=== PATIENT | female | born 1980 | race Caucasian/White ===

== ENCOUNTER 2018-02-12 19:37 | Emergency (ER) | payer BC, OTHER ==
[2018-02-12 19:53] VITALS: BP 115/82; PULSE 90; RESP 15; TEMP 98.2
--- NOTE | 2018-02-12 20:57 | ED ---
Head Injury HPI - General Chief complaint: Head Injury Stated complaint: fall/head injury Time Seen by Provider: 02/12/18 20:34 Source: patient, RN notes reviewed Mode of arrival: ambulatory Limitations: no limitations - History of Present Illness Initial comments: This is a 37-year-old female who presents to the emergency department with chief complaint of fall injury. Patient states that on 02/10/2018 she slipped down 5 wet concrete outdoor stairs. Patient states she hit the left side of her face on the ground. A friend was present at the time and patient reports she was told that she lost consciousness. She states she felt nauseous all day Friday and had multiple episodes of vomiting. She followed up at [facility] on Friday for evaluation. No computed tomography scan was obtained at the time and patient was diagnosed with a concussion. Patient states that since Friday she has had no further episodes of vomiting but continues to feel nauseous. She reports left-sided facial pain, fatigue and dizziness. Denies a severe headache. denies blood thinners use. denies any other injuries or trauma. denies vision changes or weakness. - Related Data Home Medications Medication Instructions Recorded Confirmed Phentermine HCl [Adipex-P] 37.5 mg PO DAILY PRN 02/12/18 02/12/18 Allergies/Adverse reactions: Allergies Allergy/AdvReac Type Severity Reaction Status Date / Time No Known Allergies Allergy Verified 02/12/18 20:34 Review of Systems ROS Statement: Those systems with pertinent positive or pertinent negative responses have been documented in the HPI. ROS Other: All systems not noted in ROS Statement are negative. Past Medical History Past Medical History: No Reported History History of Any Multi-Drug Resistant Organisms: None Reported Additional Past Surgical History / Comment(s): goldman,right leg Past Psychological History: No Psychological Hx Reported Smoking Status: Current every day smoker Past Alcohol Use History: Occasional Past Drug Use History: None Reported General Exam - General Exam Comments Initial Comments: General: Awake and alert, well-developed; in no apparent distress. HEENT: Mild swelling and tenderness to the left forehead. Ecchymosis and tenderness left infraorbital region. Pupils are equal, round and reactive to light. Extraocular movements intact. Oropharynx moist without erythema or exudate. Bilateral TMs pearly without effusion. Neck: Supple. Normal ROM. No tenderness. Cardiovascular: Regular rate and rhythm. No murmurs, rubs or gallops. Chest symmetrical. Respiratory: Lungs clear to auscultation bilaterally. No wheezes, rales or rhonchi. Normal respiratory effort with no use of accessory muscles. Musculoskeletal: Normal ROM, no tenderness, strength 5/5 bilateral upper and lower extremities. Ambulating normally. Skin: [place], warm and dry without rashes or lesions. Neurological: Alert and oriented x3. CN II-XII grossly intact. Speech is fluent and answers are appropriate. No focal neuro deficits. Psychiatric: Normal mood and affect. No overt signs of depression or anxiety noted. Limitations: no limitations Course Vital Signs 02/12/18 19:48 Temperature 98.2 F Pulse Rate 90 Respiratory 15 Rate Blood Pressure 115/82 O2 Sat by Pulse 99 Oximetry Medical Decision Making - Medical Decision Making This is a 37-year-old female who presents to the emergency department with chief complaint of head injury. Patient reports falling 2 days ago. She does state that she lost consciousness, has had vomiting, dizziness and fatigue. She was evaluated yesterday at another hospital and no computed tomography scan was obtained. Patient states she wants further evaluation as her symptoms have not improved. Computed tomography scan of the brain and facial bones was obtained and no abnormalities were demonstrated. Patient is likely suffering from concussion. Recommended rest. Recommended following up with her primary care provider. Patient is in no acute distress and will be discharged home at this time. She is in agreement with plan and voices understanding. All questions were answered. - Lab Data Lab Results 02/12/18 Range/Units 19:54 Urine HCG, Qual Not Detected (Not Detectd) - Radiology Data Radiology results: report reviewed CT facial bones without contrast impression: No evidence of traumatic injury. Normal paranasal sinuses. CT brain without contrast impression: Negative computed tomography scan of the brain. Disposition Clinical Impression: Concussion Disposition: HOME SELF-CARE Condition: Good Instructions: Concussion (ED) Additional Instructions: Please follow up with primary care provider within 1-2 days. Return to emergency department if symptoms should worsen or any concerns arise. Is patient prescribed a controlled substance at d/c from ED?: No Referrals: None,Stated [Primary Care Provider] - 1-2 days Time of Disposition: 21:17
--- NOTE | 2018-02-12 21:04 | CT ---
EXAMINATION TYPE: CT brain wo con DATE OF EXAM: 02/12/2018 COMPARISON: None HISTORY: Left side facial pain after fall x2 days ago. CT DLP: 845.3 mGycm. Automated Exposure Control for Dose Reduction was Utilized. TECHNIQUE: CT scan of the head is performed without contrast. FINDINGS: Ventricles of normal size. There is no mass effect nor midline shift. There is no sign of i ntracranial hemorrhage. The calvarium is intact. IMPRESSION: Negative CT scan of the brain.
--- NOTE | 2018-02-12 21:06 | CT ---
EXAMINATION TYPE: CT facial bones wo con DATE OF EXAM: 02/12/2018 COMPARISON: None HISTORY: Left side facial pain after fall x2 days ago. CT DLP: 522.5 mGycm Automated exposure control for dose reduction was used. TECHNIQUE: CT scan of the sinuses is performed without contrast, axial images are obtained, coronal r eformatted images are also reviewed. FINDINGS: The orbital margins are intact. There is no evidence of blowout fracture. There is no retro -orbital mass. Globes are symmetric. Nasal bone is intact. Zygomatic arches appear normal. The maxill a appears intact. There is fairly normal aeration of the paranasal sinuses. There is bilateral patenc y of the ostiomeatal complex. Temporomandibular joints appear normal. Visualized temporal bones appea r normal. There is normal aeration of the epitympanic recess bilaterally. IMPRESSION: No evidence of traumatic injury. Normal paranasal sinuses.
== END 2018-02-12 21:38 | disposition home or self-care (01) ==
LOC: EC 19:37
DX: S06.0X9A Concussion with loss of consciousness of unspecified duration, initial encounter (principal); S05.12XA Contusion of eyeball and orbital tissues, left eye, initial encounter; F17.200 Nicotine dependence, unspecified, uncomplicated; W10.9XXA Fall (on) (from) unspecified stairs and steps, initial encounter; Y92.009 Unspecified place in unspecified non-institutional (private) residence as the place of occurrence of the external cause
CPT/HCPCS: 70450; 70486; 81025; 99284

== ENCOUNTER 2019-02-23 00:03 | Inpatient (IN) | payer OTHER ==
--- NOTE | 2019-02-23 00:32 | ED ---
Abdominal Pain HPI - General Chief Complaint: Abdominal Pain Stated Complaint: OB consult Time Seen by Provider: 02/23/19 00:12 Source: EMS Mode of arrival: EMS Limitations: no limitations - History of Present Illness Initial Comments: Eli is a 38yo female who is transferred to the ER from neighboring hospital for evaluation of possible PID vs ovarian abscess. Patient presented to the outside hospital with 2 days of pelvic pain. [facility] patient was noted to be tachycardic and febrile. A complete workup was obtained, labs revealed leukocytosis with white count of 22.5. Pelvic ultrasound revealed no acute findings aside from some free fluid in the pelvis. Computed tomography scan of the abdomen revealed a fluid-filled tubular structure in the left pelvis consistent with possible tubo-ovarian abscess with surrounding free fluid. Patient was treated with Rocephin, Flagyl and doxycycline prior to transfer. Patient states that she is sexually active with her , she denies any concern for sexual transmitted infections. She denies being treated for sexual transmitted infections in the past. - Related Data Home Medications Medication Instructions Recorded Confirmed Phentermine HCl [Adipex-P] 37.5 mg PO DAILY PRN 02/12/18 02/12/18 Allergies Allergy/AdvReac Type Severity Reaction Status Date / Time No Known Allergies Allergy Verified 02/23/19 00:09 Review of Systems ROS Statement: Those systems with pertinent positive or pertinent negative responses have been documented in the HPI. ROS Other: All systems not noted in ROS Statement are negative. Past Medical History Past Medical History: No Reported History History of Any Multi-Drug Resistant Organisms: None Reported Additional Past Surgical History / Comment(s): goldman,right leg, Past Psychological History: No Psychological Hx Reported Smoking Status: Current every day smoker Past Alcohol Use History: Occasional Past Drug Use History: None Reported General Exam - General Exam Comments Initial Comments: Physical Exam GENERAL: Appears uncomfortable HENT: Normocephalic, Atraumatic. EYES: PERRL, EOMI PULMONARY: Unlabored respirations CARDIOVASCULAR: Tachycardic,, warm and well perfused extremities ABDOMEN: Tenderness to palpation in pelvis SKIN: Skin is clear with no lesions or rashes and otherwise unremarkable. : Deferred - patient had pelvic exam at transferring hospital NEUROLOGIC: Patient is alert and oriented x3. Moving all extremities spontaneously MUSCULOSKELETAL: Normal extremities with adequate strength and full range of motion. No lower extremity swelling or edema. No calf tenderness. PSYCHIATRIC: Normal psychiatric evaluation. Limitations: no limitations Course Vital Signs 02/23/19 02/23/19 00:04 01:08 Temperature 99.4 F 99.4 F Pulse Rate 111 H 102 H Respiratory 17 20 Rate Blood Pressure 103/67 95/60 O2 Sat by Pulse 96 98 Oximetry Medical Decision Making - Medical Decision Making Patient care was discussed with transferring physician is concerning for possible tubo-ovarian abscess Patient I will hospital, she is afebrile but tachycardic has leukocytosis and the source of infection repeat CBC CMP and blood cultures were obtained patient care was discussed with gynecology on-call Dr. Valdez who recommends repeating the ultrasound with attention to the left ovary and fallopian tube, she recommends treatment with broad spectrum antibiotics ampicillin, gentamicin and clindamycin. These were ordered. Requests admission to medicine for medical management of infection. Patient PCP Dr Markham admits to [facility] - Admission orders placed - Lab Data Result diagrams: 02/23/19 00:59 02/23/19 00:59 Lab Results 02/23/19 02/23/19 Range/Units 00:59 00:59 WBC 20.3 H (3.8-10.6) k/uL RBC 3.88 (3.80-5.40) m/uL Hgb 12.0 (11.4-16.0) gm/dL Hct 36.5 (34.0-46.0) % MCV 94.1 (80.0-100.0) fL MCH 30.9 (25.0-35.0) pg MCHC 32.8 (31.0-37.0) g/dL RDW 13.1 (11.5-15.5) % Plt Count 315 (150-450) k/uL Neutrophils % 91 % Lymphocytes % 4 % Monocytes % 4 % Eosinophils % 1 % Basophils % 1 % Neutrophils # 18.4 H (1.3-7.7) k/uL Lymphocytes # 0.8 L (1.0-4.8) k/uL Monocytes # 0.7 (0-1.0) k/uL Eosinophils # 0.1 (0-0.7) k/uL Basophils # 0.1 (0-0.2) k/uL Sodium 138 (137-145) mmol/L Potassium 3.7 (3.5-5.1) mmol/L Chloride 107 (98-107) mmol/L Carbon Dioxide 22 (22-30) mmol/L Anion Gap 9 mmol/L BUN 10 (7-17) mg/dL Creatinine 0.53 (0.52-1.04) mg/dL Est GFR (CKD-EPI)AfAm >90 (>60 ml/min/1.73 sqM) Est GFR (CKD-EPI)NonAf >90 (>60 ml/min/1.73 sqM) Glucose 104 H (74-99) mg/dL Calcium 8.9 (8.4-10.2) mg/dL Total Bilirubin 0.5 (0.2-1.3) mg/dL AST 15 (14-36) U/L ALT 12 (9-52) U/L Alkaline Phosphatase 77 (38-126) U/L Total Protein 6.7 (6.3-8.2) g/dL Albumin 3.7 (3.5-5.0) g/dL Disposition Clinical Impression: Acute infection of female upper reproductive tract Disposition: ADMITTED IP TO THIS [facility] Condition: Stable Is patient prescribed a controlled substance at d/c from ED?: No
[2019-02-23] MEDS ORDERED: AMPICILLIN 1,000 MG in SODIUM CHLORIDE 0.9% 50 ML IVPB STA (00:33)
[2019-02-23] MEDS ORDERED: CLINDAMYCIN 900 MG in DEXTROSE 5% IN WATER 50 ML IVPB STA ×2 (00:33)
[2019-02-23] MEDS ORDERED: GENTAMICIN 240 MG in SODIUM CHLORIDE 0.9% 100 ML IVPB STA (00:33)
[2019-02-23 01:18] LABS: Basophils # (A) 0.1 k/uL (0-0.2); Basophils % (A) 1 %; Eosinophils # (A) 0.1 k/uL (0-0.7); Eosinophils % (A) 1 %; HCT 36.5 % (34.0-46.0); Lymphocytes # (A) 0.8 k/uL (1.0-4.8); Lymphocytes % (A) 4 %; MCH 30.9 pg (25.0-35.0); MCHC 32.8 g/dL (31.0-37.0); MCV 94.1 fL (80.0-100.0); Mean Platelet Volume 6.2; Monocytes # (A) 0.7 k/uL (0-1.0); Monocytes % (A) 4 %; Neutrophils # (A) 18.4 k/uL (1.3-7.7); Neutrophils % (A) 91 %; Platelet Count 315 k/uL (150-450); RBC 3.88 m/uL (3.80-5.40); RDW 13.1 % (11.5-15.5); WBC 20.3 k/uL (3.8-10.6)
[2019-02-23] MEDS ORDERED: NALOXONE 0.4 MG/ML 1 ML VIAL IV PRN (01:20)
[2019-02-23 01:27] LABS: ALT 12 U/L (9-52); AST 15 U/L (14-36); African American GFR (CKD) >90 (>60 ml/min/1.73 sqM); Albumin 3.7 g/dL (3.5-5.0); Alkaline Phosphatase 77 U/L (38-126); Anion Gap 9 mmol/L; Blood Urea Nitrogen 10 mg/dL (7-17); Calcium 8.9 mg/dL (8.4-10.2); Carbon Dioxide 22 mmol/L (22-30); Chloride 107 mmol/L (98-107); Glucose 104 mg/dL (74-99); Non-African American GFR(CKD) >90 (>60 ml/min/1.73 sqM); Potassium 3.7 mmol/L (3.5-5.1); Sodium 138 mmol/L (137-145); Total Bilirubin 0.5 mg/dL (0.2-1.3); Total Protein 6.7 g/dL (6.3-8.2)
--- NOTE | 2019-02-23 01:29 | US ---
EXAMINATION TYPE: US transvaginal DATE OF EXAM: 02/23/2019 COMPARISON: Previous OB ultrasound 2010 CLINICAL HISTORY: possible TOA. Possible TOA per order. Pelvic pain x couple days. . TECHNIQUE: Transvaginal (TV). Date of LMP: 02/19/2019 EXAM MEASUREMENTS: Uterus: 10.2 x 6.5 x 5.0 cm Endometrial Stripe: 1.84 cm. Without fluid measures: 0.72 cm anteriorly and 0.59 cm posteriorly. Right Ovary: ?Possible right ovary measures: 5.0 x 2.0 x 2.1 cm. Left Ovary: not seen with certainty 1. Uterus: Anteverted. Measures upper limits of normal. Hypoechoic areas seen in cervix. Largest se en measures: 0.9 x 0.5 x 0.4 cm. 2. Endometrium: Fluid-appearing anechoic area seen upper endometrium measurin.5 x 2.1 x 0.3 cm. Appears thickened. 3. Right Ovary: Complex area seen in the right adnexa. Area imaged cannot be viewed in one plane, ap pears slightly tortuous. ?Area measured possible enlarged right ovary. Arterial and venous waveforms seen in the area measured and in complex area adjacent to/connected to probable ovary. Hypoechoic are as in possible right ovary, largest measurin.7 cm in length. 4. Left Ovary: not seen with certainty 5. Bilateral Adnexa: ?Mixed area imaged in right adnexa as mentioned above. Minimal fluid adjacent t o right ovary? 6. Posterior cul-de-sac: Minimal amount of fluid seen IMPRESSION: There are small right ovarian cysts. Tiny amount of endometrial fluid. No solid adnexal m ass. Small amount of free fluid in the cul-de-sac. Elongated fluid area in the right adnexa could rel ate to hydrosalpinx. This measures 14 mm in diameter. No evidence of torsion of the right ovary. Left ovary not seen.
[2019-02-23] MEDS: SODIUM CHLORIDE 0.9% 1,000 ML IV SCH ×3 (01:32→19:28)
[2019-02-23] MEDS: ONDANSETRON 4 MG/2 ML VIAL IVP PRN ×2 (01:34→10:45)
[2019-02-23] MEDS: MORPHINE SULFATE 4 MG/ML SYRINGE IV PRN ×2 (01:35→08:20)
--- NOTE | 2019-02-23 10:20 | P.OBCN ---
History of Present Illness Consult date: 02/23/19 Requesting physician: Roney Markham Reason for consult: other Chief complaint: Abdominal and pelvic pain History of present illness: This is a 38-year-old 10 para 10 woman with a 2 day history of worsening abdominal and right pelvic pain. She presented to [facility] room where she was found to be tachycardic, have an elevated white blood cell count, and have possible hydrosalpinx versus tubo-ovarian abscess on computed tomography scan. She was transferred to our facility for further follow-up. She reports a history of intermittent episodes of abdominal and right lower quadrant pain, approximately 4 times in the last 1-2 years. She states she has been seen in the emergency room for this condition approximately 1 year ago and at that time was also told that she had an infection but nothing was done. 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 She reports her periods are regular and her LMP was less than 1 week ago. This was a normal menstrual cycle for her without any significant change in her usual bleeding pattern. She denies fevers or chills, nausea, vomiting, constipation, diarrhea, dysuria or hematuria. She denies vaginal discharge. She is in a monogamous relationship with her . Ultrasound shows mildly enlarged uterus 10.2 x 6.5 x 5.0 cm with a thickened endometrial stripe of 1.8 cm. Complex area seen in the right adnexa not definitively the ovary, tortuous in appearance. Area measures 5.0 x 2.0 x 2.1 c m. This correlates with computed tomography scan. The appendix was normal on computed tomography scan. There is no free fluid or free air. test was negative at [facility] by verbal report. She reports a heart condition for which she occasionally takes nitroglycerin. She cannot remember the last time she needed to use this medication nor her specific diagnosis. Review of Systems Constitutional: Reports fatigue, Denies chills, Denies fever Cardiovascular: Denies chest pain, Denies high blood pressure, Denies irregular heart beat, Denies lightheadedness, Denies shortness of breath Respiratory: Denies cough, Denies pain on inspiration Gastrointestinal: Reports abdominal pain, Reports loss of appetite, Reports nausea, Denies BRBPR, Denies change in bowel habits, Denies constipation, Denies diarrhea, Denies heartburn, Denies vomiting Genitourinary: Reports pelvic pain, Denies abnormal vaginal bleeding, Denies dysuria, Denies flank pain, Denies genital sores, Denies hematuria, Denies menorrhagia, Denies urgency, Denies vaginal discharge, Denies vaginal itching, Denies vaginal odor Menstruation: Reports period normal Musculoskeletal: Reports low back pain Integumentary: Denies rash Neurological: Denies headaches Hematologic/Lymphatic: Denies easy bleeding, Denies easy bruising Past Medical History Past Medical History: No Reported History Additional Past Medical History / Comment(s): 10. Unknown cardiac condition for which she has a prescription for nitroglycerin History of Any Multi-Drug Resistant Organisms: None Reported Past Surgical History: No Surgical Hx Reported Additional Past Surgical History / Comment(s): goldman,right leg, Past Psychological History: No Psychological Hx Reported Smoking Status: Current every day smoker Past Alcohol Use History: Occasional Past Drug Use History: None Reported Medications and Allergies Home Medications Medication Instructions Recorded Confirmed Type Ibuprofen 600 mg PO Q6H PRN 02/23/19 02/23/19 History Allergies Allergy/AdvReac Type Severity Reaction Status Date / Time No Known Allergies Allergy Verified 02/23/19 07:33 Exam Vital Signs Temp Pulse Pulse Resp BP BP Pulse Ox 02/23/19 05:00 98.0 F 108 H 20 101/59 96 02/23/19 03:00 98.3 F 113 H 20 114/68 97 02/23/19 01:08 99.4 F 102 H 20 95/60 98 02/23/19 00:04 99.4 F 111 H 17 103/67 96 Intake and Output 02/22/19 02/23/19 02/23/19 22:59 06:59 14:59 Intake Total 300 Balance 300 Intake: Oral 300 Other: # Voids 1 Weight 77.111 kg This is a pleasant female with multiple tattoos and piercings. She appears to be in no acute distress. HEENT exam is unremarkable with no palpable lymphadenopathy. Her breathing is on labored. Her heart is a regular rate and rhythm. On abdominal exam the abdomen is soft and not distended. She has mild right lower and right mid abdominal pain without rebound or guarding. Pelvic examination recently performed in the emergency room therefore is deferred at this time. She did have cervical motion tenderness per verbal report. The extremities are free of any swelling or redness. Her mood and affect are normal. Results Result Diagrams: 02/23/19 00:59 02/23/19 00:59 Abnormal Lab Results - Last 24 Hours (Table) 02/23/19 02/23/19 Range/Units 00:59 00:59 WBC 20.3 H (3.8-10.6) k/uL Neutrophils # 18.4 H (1.3-7.7) k/uL Lymphocytes # 0.8 L (1.0-4.8) k/uL Glucose 104 H (74-99) mg/dL CT scan - abdomen: report reviewed CT scan - pelvis: report reviewed US - abdomen: report reviewed Assessment and Plan (1) TOA (tubo-ovarian abscess) Current Visit: Yes Status: Acute Code(s): N70.93 - SALPINGITIS AND OOPHORITIS, UNSPECIFIED SNOMED Code(s): 19177362 (2) PID (pelvic inflammatory disease) Current Visit: Yes Status: Acute Code(s): N73.9 - FEMALE PELVIC INFLAMMATORY DISEASE, UNSPECIFIED SNOMED Code(s): 241878902 (3) Acute infection of female upper reproductive tract Current Visit: Yes Status: Acute Code(s): N73.0 - ACUTE PARAMETRITIS AND PELVIC CELLULITIS SNOMED Code(s): 731173256 (4) Smoker Current Visit: Yes Status: Acute Code(s): F17.200 - NICOTINE DEPENDENCE, UNSPECIFIED, UNCOMPLICATED SNOMED Code(s): 54588410 Plan: This is a 38 year old 10 para 10 woman with probable PID and tubo- ovarian abscess. She has some fluid in the endometrium as well as a complex tubular structure measuring 5 x 2 x 2 cm on pelvic ultrasound. Blood, urine and cervical cultures are all pending. She is currently afebrile. She has received single dose each of ampicillin, gentamicin and clindamycin for presumed PID, TOA. I would recommend continuing with this regimen until normalization of her white blood cell count. An alternative antibiotic course is cefotetan 2 g IV every 12 hours with doxycycline 100 mg every 12 hours. It is possible this is a chronic process as she reports the previous evaluation for these same symptoms and findings in the last year. She may benefit from further outpatient evaluation with possible removal of hydrosalpinx when active infection has resolved. I counseled the patient that it is not uncommon for cervical cultures to be negative as the initial cervicitis has resolved but the infection remains in the uterus and fallopian tube. All questions were answered and I reviewed my treatment recommendations. I encouraged her to discuss further with her medical physicians her cardiac condition. Copies of culture results from [facility] will be reviewed as they become avai johnnie.
[2019-02-23] MEDS: DOXYCYCLINE 100 MG in SODIUM CHLORIDE 0.9% 100 ML IVPB SCH ×2 (10:44→19:29)
[2019-02-23] MEDS: AMPICILLIN-SULBACTAM 3 GM in SODIUM CHLORIDE 0.9% 100 ML IVPB SCH ×2 (12:25→17:09)
[2019-02-23] MEDS: ACETAMINOPHEN TAB 325 MG TAB PO PRN ×2 (12:27→19:28)
[2019-02-23] MEDS: HEPARIN SODIUM,PORCINE 5,000 UNIT/ML 1 ML VIAL SQ SCH ×2 (15:36→21:19)
[2019-02-23] MEDS: IBUPROFEN 400 MG TAB PO PRN (20:39)
--- NOTE | 2019-02-24 08:09 | P.PN ---
Subjective Progress Note Date: 02/24/19 Principal diagnosis: Pelvic inflammatory disease, tubo-ovarian abscess She reports ongoing generalized abdominal pain throughout the night. No nausea or vomiting. She did have a fever of 101.5. Denies vaginal bleeding or discharge. Objective - Vital Signs Vital signs: Vital Signs Temp 101.5 F H 02/23/19 20:00 Pulse 110 H 02/23/19 20:00 Resp 16 02/23/19 20:00 BP 103/55 02/23/19 20:00 Pulse Ox 96 02/23/19 20:00 Intake & Output 02/23/19 02/24/19 02/24/19 18:59 06:59 18:59 Other: # Voids 3 1 - Constitutional General appearance: Present: cooperative, no acute distress - Respiratory Respiratory: negative: CTA - Gastrointestinal General gastrointestinal: Present: normal bowel sounds, soft, tenderness. Absent: distended Localized gastrointestinal: tender: diffuse - Neurologic Neurologic: Absent: focal deficits - Psychiatric Psychiatric: Present: A&O x's 3, appropriate affect - Labs CBC & Chem 7: 02/23/19 00:59 02/23/19 00:59 Labs: Microbiology - Last 24 Hours (Table) 02/23/19 01:36 Blood Culture - Preliminary Blood No Growth after 24 hours Assessment and Plan (1) TOA (tubo-ovarian abscess) Current Visit: Yes Status: Acute Code(s): N70.93 - SALPINGITIS AND OOPHORITIS, UNSPECIFIED SNOMED Code(s): 47925789 (2) PID (pelvic inflammatory disease) Current Visit: Yes Status: Acute Code(s): N73.9 - FEMALE PELVIC INFLAMMATORY DISEASE, UNSPECIFIED SNOMED Code(s): 339247592 (3) Acute infection of female upper reproductive tract Current Visit: Yes Status: Acute Code(s): N73.0 - ACUTE PARAMETRITIS AND PELVIC CELLULITIS SNOMED Code(s): 185545074 (4) Smoker Current Visit: Yes Status: Acute Code(s): F17.200 - NICOTINE DEPENDENCE, UNSPECIFIED, UNCOMPLICATED SNOMED Code(s): 17833456 Plan: 38-year-old G2 P 10 with PID, hydrosalpinx possible tubo-ovarian abscess on the right. She is on ampicillin sulbactam and doxycycline intravenously day 2. She did have a fever of 101.5 throughout the night. Her pain has not improved. She does not have a surgical abdomen. Blood cultures are negative. Still awaiting results from urine and cervical cultures from outlying hospital. Recommend continuation of IV antibiotics until afebrile 24 hours and decreasing white blood cell counts. Recommendations reviewed with the patient and all questions are answered. Time with Patient: Less than 30
[2019-02-24 08:26] LABS: Basophils # (A) 0.1 k/uL (0-0.2); Basophils % (A) 1 %; Eosinophils # (A) 0.1 k/uL (0-0.7); Eosinophils % (A) 1 %; HCT 33.2 % (34.0-46.0); HGB 10.7 gm/dL (11.4-16.0); Lymphocytes # (A) 0.7 k/uL (1.0-4.8); Lymphocytes % (A) 6 %; MCH 31.4 pg (25.0-35.0); MCHC 32.4 g/dL (31.0-37.0); Mean Platelet Volume 6.7; Monocytes # (A) 0.6 k/uL (0-1.0); Monocytes % (A) 5 %; Neutrophils # (A) 10.5 k/uL (1.3-7.7); Neutrophils % (A) 87 %; Platelet Count 265 k/uL (150-450); RBC 3.42 m/uL (3.80-5.40); RDW 13.1 % (11.5-15.5)
[2019-02-24] MEDS: AMPICILLIN-SULBACTAM 3 GM in SODIUM CHLORIDE 0.9% 100 ML IVPB SCH ×2 (08:42→12:21)
[2019-02-24] MEDS: HEPARIN SODIUM,PORCINE 5,000 UNIT/ML 1 ML VIAL SQ SCH ×2 (08:43→15:11)
[2019-02-24] MEDS: DOXYCYCLINE 100 MG in SODIUM CHLORIDE 0.9% 100 ML IVPB SCH ×2 (08:43→21:09)
[2019-02-24] MEDS: SODIUM CHLORIDE 0.9% 1,000 ML IV SCH ×2 (08:44→17:08)
[2019-02-24] MEDS: ACETAMINOPHEN TAB 325 MG TAB PO PRN ×2 (08:49→17:08)
[2019-02-24 09:48] LABS: African American GFR (CKD) >90 (>60 ml/min/1.73 sqM); Anion Gap 6 mmol/L; Blood Urea Nitrogen 8 mg/dL (7-17); Calcium 8.7 mg/dL (8.4-10.2); Carbon Dioxide 26 mmol/L (22-30); Chloride 107 mmol/L (98-107); Glucose 76 mg/dL (74-99); Non-African American GFR(CKD) >90 (>60 ml/min/1.73 sqM); Potassium 3.8 mmol/L (3.5-5.1); Sodium 139 mmol/L (137-145)
--- NOTE | 2019-02-24 09:49 | P.HPIM ---
History of Present Illness H&P Date: 02/23/19 Chief Complaint: Abdominal pain Patient is a 38-year-old female without significant past history came to ER with the complaints of abdominal pain mainly in the lower abdomen and right upper quadrant for the past 2 days. Patient initially presented to [facility] and had CT of the abdomen pelvis which showed hydrosalpinx versus tubo- ovarian abscess. Patient had elevated white count at 22.5 and tachycardic. Due to sepsis and possible abscess patient was eventually transferred to [facility] for further evaluation. Pelvic ultrasound showed no acute findings. Free fluid was noted in the pelvis. Patient was given a dose of Rocephin, Flagyl and doxycycline prior to transfer. Patient was given ampicillin and clindamycin while in the ER. Patient otherwise denied any multiple sexual partners. Patient does have fever and chills otherwise. Transvaginal ultrasound was ordered. Transvaginal ultrasound showed complex area seen in the right adnexa. SIMIN measured cannot be viewed in one plan appears slightly tortuous. Area measured possible enlarged right ovary. Review of Systems Constitutional: Fever and chills.. No generalized weakness or weight loss. Abdomen: Patient denied nausea vomiting and diarrhea and . Patient does have lower abdominal pain. Cardiovascular: Patient denies any chest pain or short of breath no palpitations. Respiratory: patient denied any cough is from production. No shortness of breath Neurologic: Patient denied any numbness or tingling headache. Musculoskeletal: Patient denies any complaints of joint swelling or deformity. Skin: Negative Psychiatric: Negative Endocrine: No heat or cold intolerance. No recent weight gain. Genitourinary: No dysuria or hematuria. All other 14 point ROS negative except the above Past Medical History Past Medical History: No Reported History History of Any Multi-Drug Resistant Organisms: None Reported Additional Past Surgical History / Comment(s): goldman,right leg, Past Psychological History: No Psychological Hx Reported Smoking Status: Current every day smoker Past Alcohol Use History: Occasional Past Drug Use History: None Reported Medications and Allergies Home Medications Medication Instructions Recorded Confirmed Type Ibuprofen 600 mg PO Q6H PRN 02/23/19 02/23/19 History Allergies Allergy/AdvReac Type Severity Reaction Status Date / Time No Known Allergies Allergy Verified 02/23/19 07:33 Physical Exam Vitals: Vital Signs Temp Pulse Pulse Resp BP BP Pulse Ox 02/23/19 05:00 98.0 F 108 H 20 101/59 96 02/23/19 03:00 98.3 F 113 H 20 114/68 97 02/23/19 01:08 99.4 F 102 H 20 95/60 98 02/23/19 00:04 99.4 F 111 H 17 103/67 96 Intake and Output 02/22/19 02/23/19 02/23/19 22:59 06:59 14:59 Intake Total 300 Balance 300 Intake: Oral 300 Other: # Voids 1 Weight 77.111 kg PHYSICAL EXAMINATION: Patient is lying in the bed comfortably, no acute distress, awake alert and oriented.. HEENT: Normocephalic. Neck is supple. Pupils reactive. Nostrils clear. Oral cavity is moist. Ears reveal no drainage. Neck reveals no JVD, carotid bruits, or thyromegaly. CHEST EXAMINATION: Trachea is central. Symmetrical expansion. Lung smith clear to auscultation and percussion. CARDIAC: Normal S1, S2 with no gallops. No murmurs ABDOMEN: Soft. Right lower quadrant abdominal tenderness. No guarding no rigidity. Bowel sounds normal. No organomegaly. No abdominal bruits. Extremities: reveal no edema. No clubbing or cyanosis Neurologically awake, alert, oriented x3 with well-coordinated movements. No focal deficits noted Skin: No rash or skin lesions. Psychiatric: Coperative. Nonsuicidal Musculoskeletal: No joint swelling or deformity. Normal range of motion. Results CBC & Chem 7: 02/24/19 07:19 02/23/19 00:59 Labs: Abnormal Lab Results - Last 24 Hours (Table) 02/23/19 02/23/19 Range/Units 00:59 00:59 WBC 20.3 H (3.8-10.6) k/uL Neutrophils # 18.4 H (1.3-7.7) k/uL Lymphocytes # 0.8 L (1.0-4.8) k/uL Glucose 104 H (74-99) mg/dL Thrombosis Risk Factor Assmnt - DVT/VTE Prophylaxis DVT/VTE Prophylaxis: Pharmacologic Prophylaxis ordered - Choose All That Apply Any of the Below Risk Factors Present?: Yes Each Factor Represents 1 point: Obesity (BMI >25) Thrombosis Risk Factor Assessment Total Risk Factor Score: 1 Thrombosis Risk Factor Assessment Level: Low Risk Assessment and Plan Assessment: Tubal ovarian abscess versus hydrosalpinx. Sepsis secondary to above Pelvic inflammatory disease Significant Leukocytosis DVT prophylaxis Ongoing nicotine addiction Plan: Patient will be continued on broad-spectrum and buttocks and cough Unasyn and doxycycline IV. Continue the pain management and follow up cervical swab and cu lture reports from [facility]. CLIMATOLOGY TEACHER was consulted and further recommendations based on the clinical course. Follow-up CBC and repeat tomorrow. Discussed with the patient and family at bedside. Time with Patient: Greater than 30
--- NOTE | 2019-02-24 12:25 | P.PN ---
Subjective Progress Note Date: 02/24/19 Principal diagnosis: Sepsis secondary to tubo-ovarian abscess Patient is a 38-year-old female without significant past history came to ER with the complaints of abdominal pain mainly in the lower abdomen and right upper quadrant for the past 2 days. Patient initially presented to [facility] and had CT of the abdomen pelvis which showed hydrosalpinx versus tubo-ovarian abscess. Patient had elevated white count at 22.5 and tachycardic. Due to sepsis and possible abscess patient was eventually transferred to [facility] for further evaluation. Pelvic ultrasound showed no acute findings. Free fluid was noted in the pelvis. Patient was given a dose of Rocephin, Flagyl and doxycycline prior to transfer. Patient was given ampicillin and clindamycin while in the ER. Patient otherwise denied any multiple sexual partners. Patient does have fever and chills otherwise. Transvaginal ultrasound was ordered. Transvaginal ultrasound showed complex area seen in the right adnexa. SIMIN measured cannot be viewed in one plan appears slightly tortuous. Area measured possible enlarged right ovary. 02/24/2019 Patient is still complaining of lower abdominal pain slightly moved up today as per patient.. Currently being continued on Unasyn and doxycycline. Cervical swab for chlamydia, GC and Trichomonas was negative done at [facility]. Urine culture showed lactobacillus and coagulase-negative staph aureus. COMPRESSION MOLDING MACHINE SETTER service is following. No intervention recommended at this time. Leukocytosis is improving with white count 12 today. Patient was febrile last night. We'll repeat blood cultures if the patient becomes febrile again. No complaints of chest pain or shortness of breath. Active Medications Acetaminophen (Tylenol Tab) 650 mg PO Q6HR PRN PRN Reason: Mild Pain or Fever > 100.5 Last Admin: 02/24/19 08:49 Dose: 650 mg Documented by: Heparin Sodium (Porcine) (Heparin) 5,000 unit SQ Q8HR LILIANA Last Admin: 02/24/19 08:43 Dose: Not Given Documented by: Sodium Chloride (Saline 0.9%) 1,000 mls @ 100 mls/hr IV .Q10H LILIANA Last Admin: 02/24/19 08:44 Dose: 100 mls/hr Documented by: Ampicillin Sodium/Sulbactam (Sodium 3 gm/ Sodium Chloride) 100 mls @ 200 mls/hr IVPB Q6HR LILIANA Last Admin: 02/24/19 08:42 Dose: Not Given Documented by: Doxycycline Hyclate 100 mg/ (Sodium Chloride) 100 mls @ 100 mls/hr IVPB Q12HR LILIANA Last Admin: 02/24/19 08:43 Dose: 100 mls/hr Documented by: Ibuprofen (Motrin) 400 mg PO Q6HR PRN PRN Reason: Mild Pain or Fever > 100.5 Last Admin: 02/23/19 20:39 Dose: 400 mg Documented by: Morphine Sulfate (Morphine Sulfate (Inj)) 4 mg IV Q4HR PRN PRN Reason: Severe Pain Last Admin: 02/23/19 08:20 Dose: 4 mg Documented by: Naloxone HCl (Narcan) 0.2 mg IV Q2M PRN PRN Reason: Opioid Reversal Ondansetron HCl (Zofran) 4 mg IVP Q8HR PRN PRN Reason: Nausea And Vomiting Last Admin: 02/23/19 10:45 Dose: 4 mg Documented by: Objective - Vital Signs Vital signs: Vital Signs Temp 101.5 F H 02/23/19 20:00 Pulse 110 H 02/23/19 20:00 Resp 16 02/24/19 08:00 BP 103/55 02/23/19 20:00 Pulse Ox 96 02/23/19 20:00 Intake & Output 02/23/19 02/24/19 02/24/19 18:59 06:59 18:59 Other: Voiding Method Toilet # Voids 3 1 - Exam PHYSICAL EXAMINATION: Patient is lying in the bed comfortably, no acute distress, awake alert and oriented.. HEENT: Normocephalic. Neck is supple. Pupils reactive. Nostrils clear. Oral cavity is moist. Ears reveal no drainage. Neck reveals no JVD, carotid bruits, or thyromegaly. CHEST EXAMINATION: Trachea is central. Symmetrical expansion. Lung smith clear to auscultation and percussion. CARDIAC: Normal S1, S2 with no gallops. No murmurs ABDOMEN: Soft. Lower abdominal tenderness. No guarding no rigidity. Bowel sounds normal. No organomegaly. No abdominal bruits. Extremities: reveal no edema. No clubbing or cyanosis Neurologically awake, alert, oriented x3 with well-coordinated movements. No focal deficits noted Skin: No rash or skin lesions. Psychiatric: Coperative. Nonsuicidal Musculoskeletal: No joint swelling or deformity. Normal range of motion. - Labs CBC & Chem 7: 02/24/19 07:19 02/24/19 07:15 Labs: Abnormal Lab Results - Last 24 Hours (Table) 02/24/19 Range/Units 07:19 WBC 12.0 H (3.8-10.6) k/uL RBC 3.42 L (3.80-5.40) m/uL Hgb 10.7 L (11.4-16.0) gm/dL Hct 33.2 L (34.0-46.0) % Neutrophils # 10.5 H (1.3-7.7) k/uL Lymphocytes # 0.7 L (1.0-4.8) k/uL Microbiology - Last 24 Hours (Table) 02/23/19 01:36 Blood Culture - Preliminary Blood No Growth after 24 hours Assessment and Plan Assessment: Acute Tubal ovarian abscess. With elevated WBC and fever and lower abdominal tenderness. Sepsis secondary to above Pelvic inflammatory disease Significant Leukocytosis DVT prophylaxis Ongoing nicotine addiction Plan: Patient will be continued on broad-spectrum antibiotics in the form of Unasyn and doxycycline IV. Continue the pain management and follow up cervical swab and culture reports from [facility] were negative. COMPRESSION MOLDING MACHINE SETTER is following and further recommendations based on the clinical course. Follow-up CBC and repeat tomorrow. Discussed with the patient and family at bedside. Time with Patient: Greater than 30
[2019-02-24] MEDS: MORPHINE SULFATE 4 MG/ML SYRINGE IV PRN (13:27)
[2019-02-24] MEDS ORDERED: SODIUM CHLORIDE 0.9% 500 ML 500 ML IV ONE (19:31)
[2019-02-24] MEDS: DOCUSATE 100 MG CAP PO SCH (21:09)
[2019-02-25] MEDS: MORPHINE SULFATE 4 MG/ML SYRINGE IV PRN ×2 (00:14→05:08)
[2019-02-25] MEDS: HEPARIN SODIUM,PORCINE 5,000 UNIT/ML 1 ML VIAL SQ SCH ×2 (00:19→08:35)
[2019-02-25] MEDS: SODIUM CHLORIDE 0.9% 1,000 ML IV SCH (04:14)
[2019-02-25 05:04] VITALS: BP 105/68; PULSE 101; RESP 18; TEMP 99.2
[2019-02-25] MEDS: ACETAMINOPHEN TAB 325 MG TAB PO PRN (05:11)
--- NOTE | 2019-02-25 08:08 | P.PN ---
Subjective Progress Note Date: 02/25/19 Principal diagnosis: Pelvic inflammatory disease, tubo-ovarian abscess Eli reports she is feeling significantly better this morning. She is requesting discharge home. She did however receive 4 mg of IV morphine for pain control. She reports ongoing pain when the lower abdomen is pressed onto but otherwise when she is sitting quietly in bed or up to the bathroom it is not painful. She denies nausea or vomiting and is tolerating a general diet. She reports a good appetite. She denies vaginal bleeding or discharge. T-max was 100.4 at approximately 1400 on 02/24/2019. Blood cultures negative 48 hours. Verbal report of cervical and urine cultures from [facility] are negative. Objective - Vital Signs Vital signs: Vital Signs Temp 99.2 F 02/25/19 05:00 Pulse 101 H 02/25/19 05:00 Resp 18 02/25/19 05:00 BP 105/68 02/25/19 05:00 Pulse Ox 97 02/25/19 05:00 Intake & Output 02/24/19 02/25/19 02/25/19 18:59 06:59 18:59 Intake Total 1080 Balance 1080 Intake: Oral 1080 Other: Voiding Method Toilet Toilet # Voids 3 3 - Constitutional General appearance: Present: average body habitus, cooperative, no acute distress - Gastrointestinal General gastrointestinal: Present: soft, tenderness. Absent: distended Localized gastrointestinal: tender: RLQ (No rebound or guarding) - Genitourinary Genitourinary Comment(s): No active vaginal bleeding or discharge. - Neurologic Neurologic: Absent: focal deficits - Psychiatric Psychiatric: Present: appropriate affect - Labs CBC & Chem 7: 02/24/19 07:19 02/24/19 07:15 Labs: Abnormal Lab Results - Last 24 Hours (Table) 02/24/19 Range/Units 07:19 WBC 12.0 H (3.8-10.6) k/uL RBC 3.42 L (3.80-5.40) m/uL Hgb 10.7 L (11.4-16.0) gm/dL Hct 33.2 L (34.0-46.0) % Neutrophils # 10.5 H (1.3-7.7) k/uL Lymphocytes # 0.7 L (1.0-4.8) k/uL Microbiology - Last 24 Hours (Table) 02/23/19 01:36 Blood Culture - Preliminary Blood No Growth after 48 hours Assessment and Plan (1) TOA (tubo-ovarian abscess) Current Visit: Yes Status: Acute Code(s): N70.93 - SALPINGITIS AND OOPHORITIS, UNSPECIFIED SNOMED Code(s): 64416683 (2) PID (pelvic inflammatory disease) Current Visit: Yes Status: Acute Code(s): N73.9 - FEMALE PELVIC INFLAMMATORY DISEASE, UNSPECIFIED SNOMED Code(s): 899870249 (3) Acute infection of female upper reproductive tract Current Visit: Yes Status: Acute Code(s): N73.0 - ACUTE PARAMETRITIS AND PELVIC CELLULITIS SNOMED Code(s): 442542779 (4) Smoker Current Visit: Yes Status: Acute Code(s): F17.200 - NICOTINE DEPENDENCE, UNSPECIFIED, UNCOMPLICATED SNOMED Code(s): 57945496 Plan: 38-year-old G2 P 10 with PID, hydrosalpinx possible tubo-ovarian abscess on the right. She is on ampicillin sulbactam and doxycycline intravenously day 3. T- max 100.4 1400 on 02/24/2019. Cultures negative. White blood cell count has significantly improved, labs are pending for this morning. Should her white blood cell count continue to decrease she is likely now a candidate for ongoing outpatient PID treatment. I would recommend doxycycline 100 mg twice a day 14 days. I reviewed with her the importance of the completing the entire course of antibiotics. She may follow up with me in 1 week post discharge.
[2019-02-25] MEDS: DOXYCYCLINE 100 MG in SODIUM CHLORIDE 0.9% 100 ML IVPB SCH (09:26)
[2019-02-25] MEDS: DOCUSATE 100 MG CAP PO SCH (09:26)
[2019-02-25] MEDS: IBUPROFEN 400 MG TAB PO PRN (09:31)
[2019-02-25 10:09] LABS: African American GFR (CKD) >90 (>60 ml/min/1.73 sqM); Anion Gap 9 mmol/L; Blood Urea Nitrogen 6 mg/dL (7-17); Calcium 8.7 mg/dL (8.4-10.2); Carbon Dioxide 24 mmol/L (22-30); Chloride 106 mmol/L (98-107); Glucose 95 mg/dL (74-99); Non-African American GFR(CKD) >90 (>60 ml/min/1.73 sqM); Potassium 3.6 mmol/L (3.5-5.1); Sodium 139 mmol/L (137-145)
[2019-02-25 10:26] LABS: Basophils # (A) 0.1 k/uL (0-0.2); Basophils % (A) 1 %; Eosinophils # (A) 0.1 k/uL (0-0.7); Eosinophils % (A) 1 %; HCT 32.4 % (34.0-46.0); HGB 10.6 gm/dL (11.4-16.0); Lymphocytes # (A) 1.2 k/uL (1.0-4.8); Lymphocytes % (A) 11 %; MCH 31.7 pg (25.0-35.0); MCHC 32.6 g/dL (31.0-37.0); MCV 97.4 fL (80.0-100.0); Mean Platelet Volume 6.6; Monocytes # (A) 0.7 k/uL (0-1.0); Monocytes % (A) 6 %; Neutrophils # (A) 8.5 k/uL (1.3-7.7); Neutrophils % (A) 79 %; Platelet Count 326 k/uL (150-450); RBC 3.33 m/uL (3.80-5.40); WBC 10.8 k/uL (3.8-10.6)
--- NOTE | 2019-03-08 00:47 | P.DS ---
Providers Date of admission: 02/23/19 01:20 Expected date of discharge: 02/25/19 Attending physician: Sarah Whaley Consults: 02/23/19 01:21 Consult Physician Urgent Consulting Provider: Jodi Valdez Consult Reason/Comments: possible TOA Do you want consulting provider notified?: Already Contacted Primary care physician: Shahrzad Sim [facility] Course: Discharge diagnosis Acute Tubo-ovarian abscess. With elevated WBC and fever and lower abdominal tenderness. Sepsis secondary to above Pelvic inflammatory disease Significant Leukocytosis DVT prophylaxis Ongoing nicotine addiction Hospital course Patient is a 38-year-old female without significant past history came to ER with the complaints of abdominal pain mainly in the lower abdomen and right upper quadrant for the past 2 days. Patient initially presented to [facility] and had CT of the abdomen pelvis which showed hydrosalpinx versus tubo- ovarian abscess. Patient had elevated white count at 22.5 and tachycardic. Due to sepsis and possible abscess patient was eventually transferred to [facility] for further evaluation. Pelvic ultrasound showed no acute findings. Free fluid was noted in the pelvis. Patient was given a dose of Rocephin, Flagyl and doxycycline prior to transfer. Patient was given ampicillin and clindamycin while in the ER. Patient otherwise denied any multiple sexual partners. Patient does have fever and chills otherwise. Transvaginal ultrasound was ordered. Transvaginal ultrasound showed complex area seen in the right adnexa. SIMIN measured cannot be viewed in one plan appears slightly tortuous. Area measured possible enlarged right ovary. 02/24/2019 Patient is still complaining of lower abdominal pain slightly moved up today as per patient.. Currently being continued on Unasyn and doxycycline. Cervical swab for chlamydia, GC and Trichomonas was negative done at [facility]. Urine culture showed lactobacillus and coagulase-negative staph aureus. MINES INSPECTOR service is following. No intervention recommended at this time. Leukocytosis is improving with white count 12 today. Patient was febrile last night. We'll repeat blood cultures if the patient becomes febrile again. No complaints of chest pain or shortness of breath. 02/25/2019 Patient says that her abdominal pain is better. Otherwise patient did have slight fever with T-max 100.4 yesterday evening. Tolerating oral diet. Patient was admitted to stay until feeling completely resolves. Leukocytosis improved. Patient was to be discharged home today. MINES INSPECTOR has seen the patient and cleared patient for discharge with oral doxycycline for 2 weeks. Patient is being discharged home today. And follow with MINES INSPECTOR in the clinic. PHYSICAL EXAMINATION: Patient is lying in the bed comfortably, no acute distress, awake alert and oriented.. HEENT: Normocephalic. Neck is supple. Pupils reactive. Nostrils clear. Oral cavity is moist. Ears reveal no drainage. Neck reveals no JVD, carotid bruits, or thyromegaly. CHEST EXAMINATION: Trachea is central. Symmetrical expansion. Lung smith clear to auscultation and percussion. CARDIAC: Normal S1, S2 with no gallops. No murmurs ABDOMEN: Soft. Bowel sounds normal. No organomegaly. No abdominal bruits. Extremities: reveal no edema. No clubbing or cyanosis Neurologically awake, alert, oriented x3 with well-coordinated movements. No focal deficits noted Skin: No rash or skin lesions. Psychiatric: Coperative. Nonsuicidal Musculoskeletal: No joint swelling or deformity. Normal range of motion. Vital Signs Temp 99.2 F 02/25/19 05:00 Pulse 101 H 02/25/19 05:00 Resp 18 02/25/19 05:00 BP 105/68 02/25/19 05:00 Pulse Ox 97 02/25/19 05:00 Intake & Output 02/24/19 02/25/19 02/25/19 18:59 06:59 18:59 Intake Total 1080 Balance 1080 Intake: Oral 1080 Other: Voiding Method Toilet Toilet # Voids 3 3 Patient Condition at Discharge: Stable Plan - Discharge Summary New Discharge Prescriptions: New Doxycycline [Vibramycin] 100 mg PO BID 14 Days #28 cap Continue Ibuprofen 600 mg PO Q6H PRN PRN Reason: Pain Discharge Medication List Ibuprofen 600 mg PO Q6H PRN 02/23/19 [History] Doxycycline [Vibramycin] 100 mg PO BID 14 Days #28 cap 02/25/19 [Rx] Follow up Appointment(s)/Referral(s): Jodi Valdez MD [STAFF PHYSICIAN] - 1 Week (left message for office, pt may need to call) Roney Markham MD [Primary Care Provider] - 03/02/19 9:50 am Patient Instructions/Handouts: Pelvic Inflammatory Disease (DC) Activity/Diet/Wound Care/Special Instructions: No smoking, cessation information provided Regular diet Activity as tolerated. Discharge Disposition: HOME SELF-CARE
== END 2019-02-25 15:24 | disposition home or self-care (01) | DRG 872 ==
LOC: EC 00:03 → 4MS4W 01:20
PROVIDERS: ADMIT Hospitalist; ATTEND Hospitalist
DX: A41.9 Sepsis, unspecified organism (principal); N73.0 Acute parametritis and pelvic cellulitis; N70.93 Salpingitis and oophoritis, unspecified; N73.9 Female pelvic inflammatory disease, unspecified; F17.210 Nicotine dependence, cigarettes, uncomplicated
CPT/HCPCS: 36415; 76830; 80048; 80053; 85025; 87040; 93976; 96365; 96367; 96375; 99285

== ENCOUNTER → 2019-06-08 | Outpatient (CLI) | payer OTHER ==
[2019-06-08 17:31] LABS: Basophils % (A) 1 %; Eosinophils # (A) 0.2 k/uL (0-0.7); Eosinophils % (A) 2 %; HCT 39.2 % (34.0-46.0); HGB 12.9 gm/dL (11.4-16.0); Lymphocytes # (A) 1.7 k/uL (1.0-4.8); Lymphocytes % (A) 19 %; MCH 30.6 pg (25.0-35.0); MCHC 32.9 g/dL (31.0-37.0); MCV 93.2 fL (80.0-100.0); Mean Platelet Volume 6.9; Monocytes # (A) 0.4 k/uL (0-1.0); Monocytes % (A) 4 %; Neutrophils # (A) 6.7 k/uL (1.3-7.7); Neutrophils % (A) 73 %; Platelet Count 375 k/uL (150-450); RBC 4.21 m/uL (3.80-5.40); RDW 13.1 % (11.5-15.5); WBC 9.2 k/uL (3.8-10.6)
[2019-06-09 00:57] LABS: T4, Free (Free Thyroxine) 1.3 ng/dL (0.80-1.80)
[2019-06-09 10:29] LABS: ANA Pattern Speckled
== END | disposition home or self-care (01) ==
LOC: LABWHC1 16:35
PROVIDERS: ATTEND Nurse Practitioner Family
DX: D48.5 Neoplasm of uncertain behavior of skin (principal)
CPT/HCPCS: 36415; 84439; 84443; 85025; 86038; 86039

== ENCOUNTER → 2019-07-20 | Outpatient (CLI) | payer OTHER ==
[2019-07-20 13:27] LABS: Basophils % (A) 0 %; Eosinophils # (A) 0.2 k/uL (0-0.7); Eosinophils % (A) 3 %; HCT 38.9 % (34.0-46.0); HGB 12.9 gm/dL (11.4-16.0); Lymphocytes # (A) 1.3 k/uL (1.0-4.8); Lymphocytes % (A) 17 %; MCH 30.7 pg (25.0-35.0); MCHC 33.2 g/dL (31.0-37.0); MCV 92.4 fL (80.0-100.0); Mean Platelet Volume 6.6; Monocytes # (A) 0.3 k/uL (0-1.0); Monocytes % (A) 4 %; Neutrophils # (A) 5.4 k/uL (1.3-7.7); Neutrophils % (A) 74 %; Platelet Count 448 k/uL (150-450); RDW 13.2 % (11.5-15.5); WBC 7.3 k/uL (3.8-10.6)
[2019-07-20 20:08] LABS: African American GFR (CKD) 131.2 (60.0-200.0); Albumin 4.1 g/dL (3.80-4.90); Albumin/Globulin Ratio 1.64 (1.60-3.17); Anion Gap 6.5 mmol/L (4.00-12.00); Calcium 9.2 mg/dL (8.7-10.3); Carbon Dioxide 28.5 mmol/L (21.6-31.8); Globulin 2.5 g/dL (1.6-3.3); Non-African American GFR(CKD) 113.2 (60.0-200.0); Potassium 4.1 mmol/L (3.5-5.5); Total Bilirubin 0.3 mg/dL (0.3-1.2); Total Protein 6.6 g/dL (6.2-8.2)
== END | disposition home or self-care (01) ==
LOC: LABWHC1 12:12
PROVIDERS: ATTEND Nurse Practitioner Family
DX: L40.0 Psoriasis vulgaris (principal)
CPT/HCPCS: 36415; 80053; 85025; 86480

== ENCOUNTER → 2019-07-29 | Outpatient (CLI) | payer OTHER ==
[2019-07-29 12:21] LABS: Basophils % (A) 0 %; Eosinophils # (A) 0.1 k/uL (0-0.7); Eosinophils % (A) 2 %; HCT 40.6 % (34.0-46.0); HGB 13.2 gm/dL (11.4-16.0); Lymphocytes # (A) 1.3 k/uL (1.0-4.8); Lymphocytes % (A) 19 %; MCH 30.5 pg (25.0-35.0); MCHC 32.6 g/dL (31.0-37.0); MCV 93.5 fL (80.0-100.0); Mean Platelet Volume 6.9; Monocytes # (A) 0.5 k/uL (0-1.0); Monocytes % (A) 7 %; Neutrophils # (A) 4.9 k/uL (1.3-7.7); Neutrophils % (A) 71 %; Platelet Count 418 k/uL (150-450); RBC 4.34 m/uL (3.80-5.40); RDW 13.6 % (11.5-15.5)
[2019-07-29 16:12] LABS: ALT 17 U/L (8-44); AST 19 U/L (13-35)
== END | disposition home or self-care (01) ==
LOC: LABWHC1 10:34
PROVIDERS: ATTEND Nurse Practitioner Family
DX: L40.0 Psoriasis vulgaris (principal)
CPT/HCPCS: 36415; 84450; 84460; 85025

== ENCOUNTER → 2019-09-13 | Outpatient (CLI) | payer OTHER ==
[2019-09-13 11:06] LABS: Basophils % (A) 0 %; Eosinophils # (A) 0.1 k/uL (0-0.7); Eosinophils % (A) 2 %; HGB 13.4 gm/dL (11.4-16.0); Lymphocytes # (A) 1.2 k/uL (1.0-4.8); Lymphocytes % (A) 20 %; MCH 32.6 pg (25.0-35.0); MCHC 33.5 g/dL (31.0-37.0); MCV 97.1 fL (80.0-100.0); Mean Platelet Volume 6.8; Monocytes # (A) 0.4 k/uL (0-1.0); Monocytes % (A) 6 %; Neutrophils # (A) 4.4 k/uL (1.3-7.7); Neutrophils % (A) 71 %; Platelet Count 388 k/uL (150-450); RBC 4.12 m/uL (3.80-5.40); RDW 14.2 % (11.5-15.5); WBC 6.3 k/uL (3.8-10.6)
[2019-09-13 16:07] LABS: ALT 12 U/L (8-44)
[2019-09-13 16:08] LABS: AST 16 U/L (13-35)
== END | disposition home or self-care (01) ==
LOC: LABWHC1 10:23
PROVIDERS: ATTEND Nurse Practitioner Family
DX: L40.0 Psoriasis vulgaris (principal)
CPT/HCPCS: 36415; 84450; 84460; 85025

== ENCOUNTER → 2020-11-10 | Outpatient (CLI) | payer OTHER ==
--- NOTE | 2020-11-10 09:26 | US ---
EXAMINATION TYPE: US abdomen complete DATE OF EXAM: 11/10/2020 COMPARISON: NONE CLINICAL HISTORY: R10.9 ABD AND PELVIC PAIN. Pt states ABD bloating EXAM MEASUREMENTS: Liver Length: 19.8 cm Gallbladder Wall: 0.2 cm CBD: 0.3 cm Spleen: 11.8 cm Right Kidney: 12.4 x 5.2 x 5.3 cm Left Kidney: 12.7 x 4.6 x 5.4 cm Pancreas: obscured by overlying bowel gas Liver: Mild hepatomegaly, heterogeneous liver parenchyma Gallbladder: Multiple gallstones Evidence for sonographic Pulliam's sign: No CBD: wnl Spleen: wnl Right Kidney: wnl Left Kidney: wnl Upper IVC: wnl Abd Aorta: wnl No abdominal aortic aneurysm. No renal calculi or hydronephrosis. IMPRESSION: 1. The liver parenchyma is mildly enlarged and heterogeneous. A CT or MRI using liver protocol is rec ommended. 2. The tail of the pancreas is obscured by overlying bowel gas. 3. Cholelithiasis. Gallbladder wall is within normal limits. No sonographic Pulliam's sign. No pericho lecystic fluid.
--- NOTE | 2020-11-10 10:11 | US ---
EXAMINATION TYPE: US pelvis complete transvag DATE OF EXAM: 11/10/2020 COMPARISON: US 02/23/2019 CLINICAL HISTORY: R10.9 ABD AND PELVIC PAIN. Pt states ABD bloating TECHNIQUE: Transvaginal (TV) and Transabdominal (TA) . Transabdominal sonographic images of the pel vis were acquired. Transvaginal sonographic images were medically necessary to better assess the fol lowing anatomy: Ovaries Date of LMP: 10/14/2020 EXAM MEASUREMENTS: Uterus: 12.0 x 4.0 x 5.3 cm Endometrial Stripe: 1.3 cm Right Ovary: 3.7 x 2.9 x 2.5 cm 1. Uterus: Anteverted Heterogeneous, Nabothian cysts in cervix 2. Endometrium: This is within normal limits for menstruating female. 3. Right Ovary: Bilobed cyst= 3.4 x 1.4 x 2.9 cm. Minimal partial septation. 4. Left Ovary: Obscured by overlying bowel gas 5. Bilateral Adnexa: wnl 6. Posterior cul-de-sac: wnl IMPRESSION: 1. Bilobed cyst with minimal partial septation of the right ovary measuring 3.4 cm. This is likely an evolving minimally complex cyst. 2. Endometrial stripe measures 1.3 cm, which within normal limits for a menstruating female.
== END | disposition home or self-care (01) ==
LOC: RADUSWWP 07:35
PROVIDERS: ATTEND Family Medicine
DX: N83.201 Unspecified ovarian cyst, right side (principal); R16.0 Hepatomegaly, not elsewhere classified; K80.20 Calculus of gallbladder without cholecystitis without obstruction
CPT/HCPCS: 76700; 76830; 76856

== ENCOUNTER → 2021-01-03 | Outpatient (CLI) | payer OTHER ==
--- NOTE | 2021-01-03 09:49 | NM ---
EXAMINATION TYPE: NM hepatobiliary w EF DATE OF EXAM: 01/03/2021 COMPARISON: NONE HISTORY: right upper quadrant pain TECHNIQUE: After the intravenous administration of 5.1 mCi Tc 99m Mebrofenin hepatobiliary scintigrap hy is performed. Immediate images post injection. FINDINGS: There is satisfactory initial accumulation of tracer by the liver. The gallbladder is visualized wit hin 10 minutes. The small bowel activity is noted within 12 minutes. At one hour 8 ounces of oral e nsure plus is given to mimic CCK and gallbladder ejection fraction is calculated at 87%. IMPRESSION: Elevated gallbladder ejection fraction may reflect hypercontractile state. Correlate clin ically.
== END | disposition home or self-care (01) ==
LOC: RADNMMAIN 07:06
PROVIDERS: ATTEND Family Medicine
DX: R10.11 Right upper quadrant pain (principal)
CPT/HCPCS: 78226; A9537

== ENCOUNTER 2021-01-29 09:09 | Day surgery (SDC) | payer OTHER ==
[2021-01-26 13:17] VITALS: BMI 33.7
[~2021-01-29 09:09] MED LIST: ACETAMINOPHEN TAB 500 MG TAB PO PRN; DEXAMETHASONE SOD PHOSPHATE 4 MG/ML 1 ML VIAL IV ONE; HEPARIN SODIUM,PORCINE/PF 5,000 UNIT/0.5 ML SYRINGE SQ PRN; HYDROmorphone 0.5 MG/0.5 ML SYRINGE IVP PRN; LACTATED RINGERS 1,000 ML IV SCH; MIDAZOLAM 2 MG/2 ML VIAL IV PRN; ONDANSETRON 4 MG/2 ML VIAL IVP ONE; SCOPOLAMINE 1.5MG/72HR PATCH TRANSDERM ONE
[2021-01-29 10:07] LABS: Glucose,Whole Blood 92 mg/dL (75-99)
[2021-01-29] MEDS ORDERED: LIDOCAINE 1% (10MG/ML) FOR IV START INTRADERMA ONE (10:10)
--- NOTE | 2021-01-29 11:02 | P.GSHP ---
History of Present Illness H&P Date: 01/29/21 Chief Complaint: Right upper quadrant pain This a 40-year-old female who presents today for laparoscopic cholestatic. Patient then withdrawn quadrant pain. Her recent HIDA scan shows an abnormally high ejection fraction. Past Medical History Past Medical History: No Reported History Additional Past Medical History / Comment(s): Shroghren's, "fast heartbeat". Recent Darling's Palsy, was on Steroids, completed now. Hx Sepsis due to burst Ovarian Cyst burst. History of Any Multi-Drug Resistant Organisms: None Reported Past Surgical History: No Surgical Hx Reported Additional Past Surgical History / Comment(s): Surgery for goldman on right leg. Past Anesthesia/Blood Transfusion Reactions: No Reported Reaction Past Psychological History: No Psychological Hx Reported Smoking Status: Current every day smoker Past Alcohol Use History: None Reported Additional Past Alcohol Use History / Comment(s): Has been smoking off and on since age 13, 1/2PPD. Past Drug Use History: None Reported - Past Family History Mother Family Medical History: Cancer Medications and Allergies Home Medications Medication Instructions Recorded Confirmed Type ALPRAZolam [Xanax] 1 mg PO BID 01/26/21 01/29/21 History Metoprolol Tartrate 25 mg PO BID 01/26/21 01/29/21 History Allergies Allergy/AdvReac Type Severity Reaction Status Date / Time No Known Allergies Allergy Verified 01/29/21 09:39 Surgical - Exam Vital Signs Temp Pulse Resp BP Pulse Ox 98.5 F 97 18 127/75 97 01/29/21 09:52 01/29/21 09:52 01/29/21 09:52 01/29/21 09:52 01/29/21 09:52 - General well developed, well nourished, no distress - Eyes PERRL - ENT normal pinna, normal nares - Neck no masses - Respiratory normal expansion - Cardiovascular Rhythm: regular - Abdomen Abdomen: soft, non tender Assessment and Plan Assessment: Chronic cholecystitis. We'll perform laparoscopic cholecystectomy.
[2021-01-29] MEDS ORDERED: MIDAZOLAM 2 MG/2 ML VIAL IV ONE (11:06)
[2021-01-29] MEDS ORDERED: LIDOCAINE 1% INJ 10MG/ML (20 ML MDV) ONE (11:17)
[2021-01-29] MEDS ORDERED: HYDROmorphone (PF) 1 MG/ML ONE (11:17)
[2021-01-29] MEDS ORDERED: KETOROLAC 15 MG/ML 1 ML VIAL ONE (11:17)
[2021-01-29] MEDS ORDERED: ROCURONIUM 10 MG/ML (5 ML VIAL) IV ONE (11:17)
[2021-01-29] MEDS ORDERED: PROPOFOL 10 MG/ML 20 ML VIAL IV ONE (11:17)
[2021-01-29] MEDS ORDERED: SUCCINYLCHOLINE CHLORIDE 100 MG/5 ML SYR IV ONE (11:17)
[2021-01-29] MEDS ORDERED: MIDAZOLAM 2 MG/2 ML VIAL ONE (11:17)
[2021-01-29] MEDS ORDERED: fentaNYL (PF) 50 MCG/ML 2 ML AMP ONE (11:17)
[2021-01-29] MEDS ORDERED: BUPIVACAINE (PF) 0.5% 30 ML VIAL SQ ONE (11:23)
--- NOTE | 2021-01-29 11:56 | P.OP ---
Date of Procedure: 01/29/21 Preoperative Diagnosis: Chronic cholecystitis Postoperative Diagnosis: Chronic cholecystitis Procedure(s) Performed: Laparoscopic cholecystectomy Anesthesia: ROHIT Surgeon: Aftab Linder Estimated Blood Loss (ml): 5 Pathology: other (Gallbladder) Condition: stable Disposition: PACU Description of Procedure: The patient was placed on the operating table. The patient received a general endotracheal tube anesthesia. The patients abdomen was prepped and draped in the usual sterile fashion. Through an infraumbilical stab incision, the fascia of the anterior abdominal wall was grasped with a pair of Kochers and then the Veress needle was placed in the peritoneal cavity. Position of the Veress needle was confirmed with positive drop test. The abdomen was then insufflated. After adequate insufflation, the 10 mm trocar was placed in the peritoneal cavity. Following this the laparoscope was placed in the peritoneal cavity. The patient was placed in the head-up, right side up position and then a 5 mm trocar was placed in the right lateral and right subcostal position under direct visualization. A 8 mm trocar was placed in the epigastric position. The gallbladder was grasped in the fundus and infundibulum. Traction on the gallbladder was placed in the lateral and the cephalad positions. The triangle of Calot was visualized.. The cystic duct was bluntly dissected until the union of the cystic duct and common bile duct was seen. A critical view of safety was achieved. The cystic duct was then divided and sealed with the Harmonic scissors. A PDS Endoloop was then placed throughout the cystic duct stump. The cystic artery divided and sealed with the Harmonic scissors. The gallbladder was then removed from the liver bed using Harmonic scissors. The gallbladder was then extracted through the epigastric port site. Operative field was checked for any bleeding spots and Harmonic scissors was used to coagulate the liver bed. The abdomen was irrigated. The trocars were removed. The skin was closed using interrupted 3-0 Vicryl suture. Dermabond dressing were applied. The patient tolerated the procedure well.
[2021-01-29 12:04] VITALS: TEMP 98
[2021-01-29] MEDS ORDERED: LACTATED RINGERS 1,000 ML IV ONE (12:37)
[2021-01-29 14:04] VITALS: RESP 16
[2021-01-29 14:35] VITALS: PULSE 92
[2021-01-29 14:37] VITALS: BP 114/78
== END 2021-01-29 15:15 | disposition home or self-care (01) ==
LOC: OR 09:09
PROVIDERS: ATTEND Surgery
DX: K80.10 Calculus of gallbladder with chronic cholecystitis without obstruction (principal); F17.210 Nicotine dependence, cigarettes, uncomplicated; G51.0 Bell's palsy
CPT/HCPCS: 47562; 81025; 88304; J2250; J1100; J0690; J2405; J2001; J3010; J1170 ×2; J1885; J0330; J2704; J1644

== ENCOUNTER 2021-08-28 12:50 | Emergency (ER) | payer OTHER ==
[2021-08-28 13:14] VITALS: RESP 18; TEMP 97.3
[2021-08-28] MEDS ORDERED: ONDANSETRON 4 MG/2 ML VIAL IVP STA (13:36)
[2021-08-28] MEDS ORDERED: SODIUM CHLORIDE 0.9% 1,000 ML IV STA (13:36)
[2021-08-28] MEDS ORDERED: RX INFO: IV CONTRAST WAS GIVEN 1 EACH MISC MISCELLANE PRN (13:37)
--- NOTE | 2021-08-28 13:44 | ED ---
Dizziness HPI - General Chief Complaint: Dizziness Stated Complaint: Dizzieness, shaking Time Seen by Provider: 08/28/21 13:29 Source: patient, RN notes reviewed Mode of arrival: wheelchair - History of Present Illness Initial Comments: This is a 41-year-old female who presents to the emergency department for dizziness. 6 months ago she was told she had a spot on her lung, and states that the physicians gave her different answers, and she still is not sure what the etiology of this is. She was told that this may be a pneumonia, and a lung nodule, and scarring. She was supposed to have a PET scan for further evaluation, however her insurance will not cover this. She does note increasing fatigue over the last month. States that a year ago she ran a marathon and now barely has any energy. Over the past week, she has developed dizziness. States that these occur randomly with no precipitating factors, and no relation to rest or exertion. She is unable to clarify if she has a "room-spinning" sensation or feels lightheaded. She gets mild associated nausea but no vomiting. She also notes difficulty in ambulation and pain in the bilateral lower extremities that has also been progressive over these last 6 months. She feels like providers are not taking her seriously and she is very scared about being very ill. Patient is very anxious and tearful on initial examination. MD Complaint: dizziness Onset/Timin -: week(s) Improves With: nothing Worsens With: nothing - Related Data Home Medications Medication Instructions Recorded Confirmed ALPRAZolam [Xanax] 1 mg PO BID PRN 01/26/21 08/28/21 Metoprolol Tartrate 25 mg PO BID 01/26/21 08/28/21 Folic Acid 0.8 mg PO SUTUWETHFRSA 08/28/21 08/28/21 metHOTREXate sodium [Methotrexate] 10 mg PO MO 08/28/21 08/28/21 Previous Rx's Medication Instructions Recorded Albuterol Sulfate [Proair Hfa] 1 - 2 puff INHALATION Q6HR PRN 08/28/21 #8.5 gm Allergies Allergy/AdvReac Type Severity Reaction Status Date / Time No Known Allergies Allergy Verified 08/28/21 15:33 Review of Systems ROS Statement: Those systems with pertinent positive or pertinent negative responses have been documented in the HPI. ROS Other: All systems not noted in ROS Statement are negative. Constitutional: Denies: fever, chills ENT: Denies: ear pain, throat pain Respiratory: Denies: cough, dyspnea Cardiovascular: Denies: chest pain, palpitations Endocrine: Reports: fatigue Gastrointestinal: Reports: nausea. Denies: abdominal pain, vomiting, diarrhea Genitourinary: Denies: urgency, dysuria Musculoskeletal: Reports: other (bilateral leg pain). Denies: back pain Skin: Denies: rash Neurological: Reports: abnormal gait, other (dizziness). Denies: headache Past Medical History Past Medical History: No Reported History Additional Past Medical History / Comment(s): Shroghren's, "fast heartbeat". Recent Darling's Palsy, was on Steroids, completed now. Hx Sepsis due to burst Ovarian Cyst burst. History of Any Multi-Drug Resistant Organisms: None Reported Past Surgical History: No Surgical Hx Reported, Cholecystectomy Additional Past Surgical History / Comment(s): Surgery for goldman on right leg. Past Anesthesia/Blood Transfusion Reactions: No Reported Reaction Past Psychological History: No Psychological Hx Reported, Anxiety Smoking Status: Current every day smoker Past Alcohol Use History: None Reported Past Drug Use History: None Reported - Past Family History Mother Family Medical History: Cancer General Exam Limitations: no limitations General appearance: alert, in distress Head exam: Present: atraumatic, normocephalic, normal inspection ENT exam: Present: normal exam, normal oropharynx, mucous membranes moist, TM's normal bilaterally, normal external ear exam Neck exam: Present: normal inspection. Absent: tenderness, meningismus, lymphadenopathy Respiratory exam: Present: normal lung sounds bilaterally. Absent: respiratory distress, wheezes, rales, rhonchi, stridor Cardiovascular Exam: Present: regular rate, normal rhythm, normal heart sounds. Absent: systolic murmur, diastolic murmur, rubs, gallop, clicks GI/Abdominal exam: Present: soft, normal bowel sounds. Absent: distended, tenderness, guarding, rebound, rigid Neurological exam: Present: alert, oriented X3, CN II-XII intact Psychiatric exam: Present: other (tearful) Skin exam: Present: warm, dry, intact, normal color. Absent: rash Course Vital Signs 08/28/21 08/28/21 08/28/21 13:04 13:34 14:48 Temperature 97.3 F L Pulse Rate 85 107 H 86 Respiratory 18 18 18 Rate Blood Pressure 127/82 126/92 112/80 O2 Sat by Pulse 98 97 Oximetry 08/28/21 17:16 Temperature Pulse Rate 84 Respiratory 18 Rate Blood Pressure 139/76 O2 Sat by Pulse 98 Oximetry EKG Findings - EKG Comments: EKG Findings:: Normal sinus rhythm. Ventricular rate 95 bpm, KS interval 169 ms, QRS duration 84 ms, QTc 388 ms. Medical Decision Making - Medical Decision Making This is a 41-year-old female who presents to emergency department for dizziness. CT of the brain did not identify any acute abnormalities. Chest x-ray revealed plate atelectasis and otherwise identified no irregularities. Lab work and EKG were unremarkable, including a negative d-dimer, troponin, and BNP. Her workup at this time has not identified any cause of her symptoms. She has multiple nonspecific complaints that may be related to her autoimmune disease or an entirely different problem that will require a more extensive outpatient workup. I did send a ProAir inhaler to her pharmacy to use when she gets short of breath. Advised she use this no more than every 4 hours. Return precautions reviewed in depth, the patient is instructed to return to the emergency department with any new, worsening, or concerning symptoms. Patient verbalized understanding. This case was discussed in detail with the attending ED physician. Presentation, findings, and treatment plan discussed in detail as well. - Lab Data Result diagrams: 08/28/21 14:16 08/28/21 14:16 Lab Results 08/28/21 08/28/21 08/28/21 Range/Units 14:16 14:16 14:16 WBC 8.8 (3.8-10.6) k/uL RBC 4.15 (3.80-5.40) m/uL Hgb 13.7 (11.4-16.0) gm/dL Hct 40.9 (34.0-46.0) % MCV 98.5 (80.0-100.0) fL MCH 33.0 (25.0-35.0) pg MCHC 33.6 (31.0-37.0) g/dL RDW 14.2 (11.5-15.5) % Plt Count 393 (150-450) k/uL MPV 6.7 Neutrophils % 77 % Lymphocytes % 15 % Monocytes % 5 % Eosinophils % 2 % Basophils % 1 % Neutrophils # 6.8 (1.3-7.7) k/uL Lymphocytes # 1.3 (1.0-4.8) k/uL Monocytes # 0.4 (0-1.0) k/uL Eosinophils # 0.2 (0-0.7) k/uL Basophils # 0.1 (0-0.2) k/uL D-Dimer (<0.60) mg/L FEU Sodium 136 L (137-145) mmol/L Potassium 4.6 (3.5-5.1) mmol/L Chloride 105 (98-107) mmol/L Carbon Dioxide 25 (22-30) mmol/L Anion Gap 6 mmol/L BUN 9 (7-17) mg/dL Creatinine 0.68 (0.52-1.04) mg/dL Est GFR (CKD-EPI)AfAm >90 (>60 ml/min/1.73 sqM) Est GFR (CKD-EPI)NonAf >90 (>60 ml/min/1.73 sqM) Glucose 85 (74-99) mg/dL Plasma Lactic Acid Arpan 1.4 (0.7-2.0) mmol/L Calcium 9.1 (8.4-10.2) mg/dL Total Bilirubin 0.5 (0.2-1.3) mg/dL AST 24 (14-36) U/L ALT 17 (4-34) U/L Alkaline Phosphatase 101 (38-126) U/L Troponin I (0.000-0.034) ng/mL NT-Pro-B Natriuret Pep pg/mL Total Protein 7.7 (6.3-8.2) g/dL Albumin 4.1 (3.5-5.0) g/dL Urine HCG, Qual (Not Detectd) 08/28/21 08/28/21 08/28/21 Range/Units 14:16 15:01 17:21 WBC (3.8-10.6) k/uL RBC (3.80-5.40) m/uL Hgb (11.4-16.0) gm/dL Hct (34.0-46.0) % MCV (80.0-100.0) fL MCH (25.0-35.0) pg MCHC (31.0-37.0) g/dL RDW (11.5-15.5) % Plt Count (150-450) k/uL MPV Neutrophils % % Lymphocytes % % Monocytes % % Eosinophils % % Basophils % % Neutrophils # (1.3-7.7) k/uL Lymphocytes # (1.0-4.8) k/uL Monocytes # (0-1.0) k/uL Eosinophils # (0-0.7) k/uL Basophils # (0-0.2) k/uL D-Dimer 0.34 (<0.60) mg/L FEU Sodium (137-145) mmol/L Potassium (3.5-5.1) mmol/L Chloride (98-107) mmol/L Carbon Dioxide (22-30) mmol/L Anion Gap mmol/L BUN (7-17) mg/dL Creatinine (0.52-1.04) mg/dL Est GFR (CKD-EPI)AfAm (>60 ml/min/1.73 sqM) Est GFR (CKD-EPI)NonAf (>60 ml/min/1.73 sqM) Glucose (74-99) mg/dL Plasma Lactic Acid Arpan (0.7-2.0) mmol/L Calcium (8.4-10.2) mg/dL Total Bilirubin (0.2-1.3) mg/dL AST (14-36) U/L ALT (4-34) U/L Alkaline Phosphatase (38-126) U/L Troponin I <0.012 (0.000-0.034) ng/mL NT-Pro-B Natriuret Pep pg/mL Total Protein (6.3-8.2) g/dL Albumin (3.5-5.0) g/dL Urine HCG, Qual Not Detected (Not Detectd) 08/28/21 Range/Units 17:40 WBC (3.8-10.6) k/uL RBC (3.80-5.40) m/uL Hgb (11.4-16.0) gm/dL Hct (34.0-46.0) % MCV (80.0-100.0) fL MCH (25.0-35.0) pg MCHC (31.0-37.0) g/dL RDW (11.5-15.5) % Plt Count (150-450) k/uL MPV Neutrophils % % Lymphocytes % % Monocytes % % Eosinophils % % Basophils % % Neutrophils # (1.3-7.7) k/uL Lymphocytes # (1.0-4.8) k/uL Monocytes # (0-1.0) k/uL Eosinophils # (0-0.7) k/uL Basophils # (0-0.2) k/uL D-Dimer (<0.60) mg/L FEU Sodium (137-145) mmol/L Potassium (3.5-5.1) mmol/L Chloride (98-107) mmol/L Carbon Dioxide (22-30) mmol/L Anion Gap mmol/L BUN (7-17) mg/dL Creatinine (0.52-1.04) mg/dL Est GFR (CKD-EPI)AfAm (>60 ml/min/1.73 sqM) Est GFR (CKD-EPI)NonAf (>60 ml/min/1.73 sqM) Glucose (74-99) mg/dL Plasma Lactic Acid Arpan (0.7-2.0) mmol/L Calcium (8.4-10.2) mg/dL Total Bilirubin (0.2-1.3) mg/dL AST (14-36) U/L ALT (4-34) U/L Alkaline Phosphatase (38-126) U/L Troponin I (0.000-0.034) ng/mL NT-Pro-B Natriuret Pep 26 pg/mL Total Protein (6.3-8.2) g/dL Albumin (3.5-5.0) g/dL Urine HCG, Qual (Not Detectd) - Radiology Data Radiology results: report reviewed, image reviewed Disposition Clinical Impression: Dizziness Disposition: HOME SELF-CARE Instructions (If sedation given, give patient instructions): Dizziness (ED) Additional Instructions: Return to the emergency department with any new, worsening, or concerning symp toms. Use the ProAir inhaler as needed for shortness of breath, no more than every 4 hours. Follow up with your primary care provider in 1-2 days. Prescriptions: Albuterol Sulfate [Proair Hfa] 1 - 2 puff INHALATION Q6HR PRN #8.5 gm PRN Reason: Shortness Of Breath Is patient prescribed a controlled substance at d/c from ED?: No Referrals: Iván Jaramillo MD [Primary Care Provider] - 1-2 days
[2021-08-28 14:36] LABS: Basophils # (A) 0.1 k/uL (0-0.2); Basophils % (A) 1 %; Eosinophils # (A) 0.2 k/uL (0-0.7); Eosinophils % (A) 2 %; HCT 40.9 % (34.0-46.0); HGB 13.7 gm/dL (11.4-16.0); Lymphocytes # (A) 1.3 k/uL (1.0-4.8); Lymphocytes % (A) 15 %; MCHC 33.6 g/dL (31.0-37.0); MCV 98.5 fL (80.0-100.0); Mean Platelet Volume 6.7; Monocytes # (A) 0.4 k/uL (0-1.0); Monocytes % (A) 5 %; Neutrophils # (A) 6.8 k/uL (1.3-7.7); Neutrophils % (A) 77 %; Platelet Count 393 k/uL (150-450); RBC 4.15 m/uL (3.80-5.40); RDW 14.2 % (11.5-15.5); WBC 8.8 k/uL (3.8-10.6)
[2021-08-28 14:46] LABS: ALT 17 U/L (4-34); AST 24 U/L (14-36); African American GFR (CKD) >90 (>60 ml/min/1.73 sqM); Albumin 4.1 g/dL (3.5-5.0); Alkaline Phosphatase 101 U/L (38-126); Anion Gap 6 mmol/L; Blood Urea Nitrogen 9 mg/dL (7-17); Calcium 9.1 mg/dL (8.4-10.2); Carbon Dioxide 25 mmol/L (22-30); Chloride 105 mmol/L (98-107); Glucose 85 mg/dL (74-99); Non-African American GFR(CKD) >90 (>60 ml/min/1.73 sqM); Potassium 4.6 mmol/L (3.5-5.1); Sodium 136 mmol/L (137-145); Total Bilirubin 0.5 mg/dL (0.2-1.3); Total Protein 7.7 g/dL (6.3-8.2)
--- NOTE | 2021-08-28 14:52 | CT ---
EXAMINATION TYPE: CT brain wo con DATE OF EXAM: 08/28/2021 COMPARISON: CT dated 02/12/2018 HISTORY: Dizziness and difficulty with ambulation CT DLP: 1063.4 mGycm Automated exposure control for dose reduction was used. TECHNIQUE: CT scan of the brain is performed without IV contrast administration. FINDINGS: No acute intracranial hemorrhage. No gross acute cortical infarct. No midline shift, herniation or ve ntriculomegaly. Unremarkable garcia-white matter differentiation, basal cisterns, sella and CP angles. No gross space-o ccupying lesion, vasogenic edema or mass effect. Unremarkable orbits. Clear visualized paranasal sinuses and mastoid air cells. Unremarkable calvarial bones. IMPRESSION: No acute intracranial abnormality or gross space-occupying lesion by this nonenhanced CT scan.
--- NOTE | 2021-08-28 15:01 | XR ---
EXAMINATION TYPE: XR chest 2V DATE OF EXAM: 08/28/2021 COMPARISON: None INDICATION: Short of breath history of a lung nodule TECHNIQUE: Frontal and lateral views of the chest are obtained. FINDINGS: The heart size is normal. The pulmonary vasculature is normal. No discrete lung nodules identified. Some minimal linear opacities at the left base may be related to some minimal plate atelectasis.. IMPRESSION: 1. Minimal plate atelectasis left base
[2021-08-28 20:00] VITALS: BP 122/78; PULSE 82
== END 2021-08-28 19:59 | disposition home or self-care (01) ==
LOC: EC 12:50
DX: R42 Dizziness and giddiness (principal); F17.200 Nicotine dependence, unspecified, uncomplicated
CPT/HCPCS: 93005; 85379; 83880; 80053; 83605; 84484; 85025; 81025; 71046; 70450; 99284; 96374; 96361; J2405

== ENCOUNTER 2024-08-22 10:41 | Inpatient (IN) | payer BC, OTHER ==
--- NOTE | 2024-08-22 11:07 | ED ---
Abdominal Pain HPI - General Chief Complaint: Abdominal Pain Stated Complaint: Abd pain Time Seen by Provider: 08/22/24 11:06 Source: patient, RN notes reviewed Mode of arrival: ambulatory Limitations: no limitations - History of Present Illness Initial Comments: 44-year-old female presented to the ER for evaluation of abdominal pain. Patient with a past medical history significant of Sjogren's disease recently taken off Plaquenil approximately 2 months ago. Patient states 2 weeks ago she started to endorse URI symptoms with a cough and believed it was sinus infection. She took leftover Z-Fletcher and steroids without relief of symptoms. P atient states over the past week she has also been having a cramping right sided abdominal pain. Patient was seen at [facility] on 08-18-2024. Patient states she was diagnosed with a UTI and discharged on doxycycline and Keflex. She has been taking these as prescribed. She states over the past couple of days she has had continued and worsening abdominal discomfort along with nausea and vomiting. Patient reports that she feels very ill like when she was previously septic. Patient reports mild shortness of breath with coughing. Denies chest pain. Abdominal pain is a cramping sharp abdominal pain with no radiation. She has also taken [id number] Tylenol for symptom control along with prescribed Xanax. Patient admits to dysuria and a green vaginal discharge. Patient states she is not sexually active and is not concerned of STDs. No known fevers at home. Patient reports a history of cholecystectomy and has had persistent diarrhea since then. No other complaints - Related Data Home Medications Medication Instructions Recorded Confirmed ALPRAZolam [Xanax] 1 mg PO TID PRN 01/26/21 08/22/24 Atorvastatin [Lipitor] 10 mg PO DAILY 08/22/24 08/22/24 Cephalexin [Keflex] 500 mg PO BID 08/22/24 08/22/24 Doxycycline Monohydrate 100 mg PO BID 08/22/24 08/22/24 Metoprolol Tartrate [Lopressor] 50 mg PO BID-W/MEALS 08/22/24 08/22/24 Allergies Allergy/AdvReac Type Severity Reaction Status Date / Time No Known Allergies Allergy Verified 08/22/24 11:21 Review of Systems ROS Statement: Those systems with pertinent positive or pertinent negative responses have been documented in the HPI. ROS Other: All systems not noted in ROS Statement are negative. Past Medical History Past Medical History: No Reported History Additional Past Medical History / Comment(s): Shroghren's, "fast heartbeat". Recent Darling's Palsy, was on Steroids, completed now. Hx Sepsis due to burst Ovarian Cyst burst. History of Any Multi-Drug Resistant Organisms: None Reported Past Surgical History: No Surgical Hx Reported, Cholecystectomy Additional Past Surgical History / Comment(s): Surgery for goldman on right leg. Past Anesthesia/Blood Transfusion Reactions: No Reported Reaction Past Psychological History: No Psychological Hx Reported, Anxiety Smoking Status: Current every day smoker Past Alcohol Use History: None Reported Past Drug Use History: None Reported - Past Family History Mother Family Medical History: Cancer General Exam Limitations: no limitations General appearance: alert, in no apparent distress Respiratory exam: Present: normal lung sounds bilaterally. Absent: respiratory distress, wheezes, rales, rhonchi, stridor Cardiovascular Exam: Present: normal rhythm, tachycardia, normal heart sounds GI/Abdominal exam: Present: soft, tenderness (LLQ), normal bowel sounds External exam: Present: normal external exam Speculum exam: Present: cervical discharge (thick yellow white) By manual exam: Present: cervical motion tenderness, adnexal tenderness (left), uterine tenderness Neurological exam: Present: alert, oriented X3, CN II-XII intact Skin exam: Present: warm, dry, intact, normal color. Absent: rash Course Vital Signs 08/22/24 08/22/24 08/22/24 10:46 12:51 15:36 Temperature 100.5 F H 98.8 F 98.4 F Pulse Rate 119 H 82 92 Respiratory 17 18 16 Rate Blood Pressure 131/83 118/66 126/78 O2 Sat by Pulse 96 97 99 Oximetry - Reevaluation(s) Reevaluation #1: 08/22/24 15:32 Case discussed with environmental programs manager [employer], Dr. Newberry, she is agreeable to be on consult for medicine admission. She recommended 08/22/24 16:17 Case discussed with [facility], Dr. Mckenzie who accepts admission. 08/22/24 16:18 Pelvic exam chaperoned by August EMT. Reevaluation #2: 08/22/24 16:35 Sepsis criteria at 1159. Antibiotics (Rocephin) and blood culture ordered at 1303 Perkins body weight 64 kg Infection identified 1500 Medical Decision Making - Medical Decision Making Was pt. sent in by a medical professional or institution (, PA, REPORTS ANALYSIS MANAGER, urgent care, hospital, or [facility]...) When possible be specific @ -No Did you speak to anyone other than the patient for history (EMS, parent, family, police, friend...)? What history was obtained from this source @ -No Did you review nursing and triage notes (agree or disagree)? Why? @ -I reviewed and agree with nursing and triage notes Were old charts reviewed (outside hosp., previous admission, EMS record, old EKG, old radiological studies, urgent care reports/EKG's, [facility] records)? Report findings @ -No old charts were reviewed Differential Diagnosis (chest pain, altered mental status, abdominal pain women, abdominal pain men, vaginal bleeding, weakness, fever, dyspnea, syncope, headache, dizziness, GI bleed, back pain, seizure, CVA, palpatations, mental health, musculoskeletal)? @ -Differential Abdominal Pain Women:Appendicitis, Cholecystitis, diverticulosis, ischemic bowel, pancreatitis, hepatitis, UTI, gastroenteritis, AAA, incarcerated hernia, bowel obstruction, constipation, inflammatory bowel, hepatitis, peptic ulcer disease, splenic infarction, perforated viscus, vulvitis, ovarian torsion, PID, kidney stone, placenta abruption, this is not meant to be an all-inclusive list EKG interpreted by me (3pts min.). @ -As above X-rays interpreted by me (1pt min.). @ -CXR interpreted me negative for focal consolidations, pneumothorax or pleural effusions. CT interpreted by me (1pt min.). @ -CT abdomen pelvis showing prominent fluid-filled areas within bilateral adnexa with minimal adjacent inflammatory change. Consider hydropyosalpinx. U/S interpreted by me (1pt. min.). @ -Transvaginal ultrasound showing multiseptated complex cystic masslike prominence of bilateral adnexa. Indeterminate for complex hemorrhagic cyst versus hydrosalpinx. Discrete ovarian tissue not well-visualized. Nonspecific mild fluid distention of endometrial canal. What testing was considered but not performed or refused? (CT, X-rays, U/S, labs)? Why? @ -None What meds were considered but not given or refused? Why? @ -None Did you discuss the management of the patient with other professionals (professionals i.e. , PA, REPORTS ANALYSIS MANAGER, lab, RT, psych nurse, social insurance adviser, financial systems director, teacher, naval gunfire liaison officer, corrections caseworker)? Give summary @ -Yes, case discussed with environmental programs manager [employer], Dr. Newberry. She is agreeable to be on consult with medicine admission. She also recommends starting patient on Zosyn and Flagyl. Case also discussed with [facility], Dr. Mckenzie, who accepts admission. Was smoking cessation discussed for >3mins.? @ -No Was critical care preformed (if so, how long)? @ -No Were there social determinants of health that impacted care today? How? (Homelessness, low income, unemployed, alcoholism, drug addiction, transportation, low edu. Level, literacy, decrease access to med. care, longterm, rehab)? @ -No Was there de-escalation of care discussed even if they declined (Discuss DNR or withdrawal of care, Hospice)? DNR status @ -No What co-morbidities impacted this encounter? (DM, HTN, Smoking, COPD, CAD, Cancer, CVA, ARF, Chemo, Hep., AIDS, mental health diagnosis, sleep apnea, morbid obesity)? @ -Anxiety, hypertension Was patient admitted / discharged? Hospital course, mention meds given and route, prescriptions, significant lab abnormalities, going to OR and other pertinent info. @ -Admitted. 44-year-old female presented the ER for evaluation of abdominal pain. Patient febrile upon arrival at 100.5F and tachycardic 119 bpm, vitals otherwise acceptable limits. Laboratory studies showed a leukocytosis of 13.8 with left shift. CMP unremarkable. Lactic 1.1. Urinalysis is hemorrhagic with 20 RBCs and small blood. hCG negative. Viral swabs negative. Imaging completed in the ER concerning of tubo-ovarian abscess versus hydropyosalpinx. Given concern of sepsis patient was started on Rocephin and received IV 1500 fluid bolus and maintance fluids 125cc/hr. patient reevaluated after fluid bolus vital stable. Laboratory studies and imaging findings discussed with on-call [employer], Dr. Newberry, who is agreeable to be on consult who advised on starting patient on Zosyn and Flagyl with medicine admit. Case then discussed with [facility], Dr. Mckenzie who accepts admission. ID and [employer] on consult. Patient given ibuprofen and Toradol for fever and symptom control in the ER, with improvement. Urine gonorrhea, chlamydia and trichomonas pending at time of admission. Urine culture results requested from [facility] at time of admission. Upon reevaluation, patient resting comfortably in exam and no signs of acute distress. Results discussed with patient, all questions answered. Patient agreeable for admission. Case discussed with ED attending, Dr. Middleton. Undiagnosed new problem with uncertain prognosis? @ -No Drug Therapy requiring intensive monitoring for toxicity (Heparin, Nitro, Insulin, Cardizem)? @ -No Were any procedures done? @ -No Diagnosis/symptom? @ -sepsis/hydropyosalpinx v tubo ovarian abscess Acute, or Chronic, or Acute on Chronic? @ -Acute Uncomplicated (without systemic symptoms) or Complicated (systemic symptoms)? @ -Complicated Side effects of treatment? @ -No Exacerbation, Progression, or Severe Exacerbation? @ -No Poses a threat to life or bodily function? How? (Chest pain, [place], [place], pneumonia, PE, COPD, DKA, ARF, appy, cholecystitis, CVA, Diverticulitis, Homicidal, Suicid al, threat to staff... and all critical care pts) @ -Yes, sepsis is life threatening. - Lab Data Result diagrams: 08/22/24 11:45 08/22/24 11:45 Lab Results 08/22/24 08/22/24 08/22/24 Range/Units 11:13 11:13 11:14 WBC (4.50-10.00) 10*3/uL RBC (4.10-5.20) 10*6/uL Hgb (12.0-15.0) g/dL Hct (37.2-46.3) % MCV (80.0-97.0) fL MCH (27.0-32.0) pg MCHC (32.0-37.0) g/dL Plt Count (140-440) 10*3/uL MPV (9.5-12.2) fL Immature Gran % (Auto) % Neutrophils % % Lymphocytes % % Monocytes % % Eosinophils % % Basophils % % Immature Gran # (0.00-0.04) 10*3/uL Neutrophils # (1.80-7.70) 10*3/uL Lymphocytes # (0.90-5.00) 10*3/uL Monocytes # (0.20-1.00) 10*3/uL Eosinophils # (0.04-0.35) 10*3/uL Basophils # (0.00-0.10) 10*3/uL Sodium (137-145) mmol/L Potassium (3.5-5.1) mmol/L Chloride (98-107) mmol/L Carbon Dioxide (22-30) mmol/L Anion Gap mmol/L BUN (7-17) mg/dL Creatinine (0.52-1.04) mg/dL Est GFR (CKD-EPI)AfAm (>60 ml/min/1.73 sqM) Est GFR (CKD-EPI)NonAf (>60 ml/min/1.73 sqM) Glucose (74-99) mg/dL Plasma Lactic Acid Arpan (0.7-2.0) mmol/L Calcium (8.4-10.2) mg/dL Total Bilirubin (0.2-1.3) mg/dL AST (14-36) U/L ALT (4-34) U/L Alkaline Phosphatase (38-126) U/L Total Protein (6.3-8.2) g/dL Albumin (3.5-5.0) g/dL Amylase (30-110) U/L Lipase (23-300) U/L Urine Color Yellow Urine Appearance Cloudy H (Clear) Urine pH 7.0 (5.0-8.0) Ur Specific [place] 1.031 (1.001-1.035) Urine Protein Trace H (Negative) Urine Glucose (UA) Negative (Negative) Urine Ketones Negative (Negative) Urine Blood Small H (Negative) Urine Nitrite Negative (Negative) Urine Bilirubin Negative (Negative) Urine Urobilinogen 2.0 (<2.0) mg/dL Ur Leukocyte Esterase Negative (Negative) Urine RBC 20 H (0-5) /hpf Urine WBC 2 (0-5) /hpf Ur Squamous Epith Cells 10 H (0-4) /hpf Urine Bacteria Rare H (None) /hpf Hyaline Casts 1 (0-2) /lpf Urine Mucus Few H (None) /hpf Urine HCG, Qual Not Detected (Not Detectd) Influenza Type A (PCR) Not Detected (Not Detectd) Influenza Type B (PCR) Not Detected (Not Detectd) RSV (PCR) Not Detected (Not Detectd) SARS-CoV-2 (PCR) Not Detected (Not Detectd) 08/22/24 08/22/24 08/22/24 Range/Units 11:45 11:45 11:45 WBC 13.80 H (4.50-10.00) 10*3/uL RBC 3.83 L (4.10-5.20) 10*6/uL Hgb 12.1 (12.0-15.0) g/dL Hct 35.3 L (37.2-46.3) % MCV 92.2 (80.0-97.0) fL MCH 31.6 (27.0-32.0) pg MCHC 34.3 (32.0-37.0) g/dL Plt Count 440 (140-440) 10*3/uL MPV 8.6 L (9.5-12.2) fL Immature Gran % (Auto) 1.2 % Neutrophils % 77.9 % Lymphocytes % 10.4 % Monocytes % 8.8 % Eosinophils % 1.2 % Basophils % 0.5 % Immature Gran # 0.17 H (0.00-0.04) 10*3/uL Neutrophils # 10.73 H (1.80-7.70) 10*3/uL Lymphocytes # 1.44 (0.90-5.00) 10*3/uL Monocytes # 1.22 H (0.20-1.00) 10*3/uL Eosinophils # 0.17 (0.04-0.35) 10*3/uL Basophils # 0.07 (0.00-0.10) 10*3/uL Sodium 137 (137-145) mmol/L Potassium 3.8 (3.5-5.1) mmol/L Chloride 102 (98-107) mmol/L Carbon Dioxide 27 (22-30) mmol/L Anion Gap 8 mmol/L BUN 10 (7-17) mg/dL Creatinine 0.58 (0.52-1.04) mg/dL Est GFR (CKD-EPI)AfAm >90 (>60 ml/min/1.73 sqM) Est GFR (CKD-EPI)NonAf >90 (>60 ml/min/1.73 sqM) Glucose 110 H (74-99) mg/dL Plasma Lactic Acid Arpan 1.1 (0.7-2.0) mmol/L Calcium 9.6 (8.4-10.2) mg/dL Total Bilirubin 0.5 (0.2-1.3) mg/dL AST 23 (14-36) U/L ALT 16 (4-34) U/L Alkaline Phosphatase 99 (38-126) U/L Total Protein 6.5 (6.3-8.2) g/dL Albumin 3.6 (3.5-5.0) g/dL Amylase 34 (30-110) U/L Lipase 34 (23-300) U/L Urine Color Urine Appearance (Clear) Urine pH (5.0-8.0) Ur Specific [place] (1.001-1.035) Urine Protein (Negative) Urine Glucose (UA) (Negative) Urine Ketones (Negative) Urine Blood (Negative) Urine Nitrite (Negative) Urine Bilirubin (Negative) Urine Urobilinogen (<2.0) mg/dL Ur Leukocyte Esterase (Negative) Urine RBC (0-5) /hpf Urine WBC (0-5) /hpf Ur Squamous Epith Cells (0-4) /hpf Urine Bacteria (None) /hpf Hyaline Casts (0-2) /lpf Urine Mucus (None) /hpf Urine HCG, Qual (Not Detectd) Influenza Type A (PCR) (Not Detectd) Influenza Type B (PCR) (Not Detectd) RSV (PCR) (Not Detectd) SARS-CoV-2 (PCR) (Not Detectd) - Radiology Data Radiology results: report reviewed, image reviewed Disposition Clinical Impression: TOA (tubo-ovarian abscess), Sepsis Disposition: ADMITTED IP TO THIS [facility] Condition: Stable Referrals: Kevin Denis MD [Primary Care Provider] - 1-2 days Time of Disposition: 16:20
[2024-08-22] MEDS: ACETAMINOPHEN TAB 325 MG TAB PO STA (11:24)
--- NOTE | 2024-08-22 11:39 | XR ---
EXAMINATION TYPE: XR chest 2V DATE OF EXAM: 08/22/2024 11:31 AM COMPARISON: 08/28/2021 CLINICAL INDICATION: Female, 44 years old with history of cough fever, upper chest pain 2 weeks TECHNIQUE: XR chest 2V view(s) obtained. FINDINGS: The heart size is normal. The pulmonary vasculature is normal. The lungs are clear. No pneumothorax is evident. No displaced rib fractures are evident. IMPRESSION: 1. No acute pulmonary process. [facility], , 08/22/2024 11:36 AM
[2024-08-22 11:45] LABS: Appearance,Urine Cloudy (Clear); Bacteria,Urine Rare /hpf; Bilirubin,Urine Negative (Negative); Blood,Urine Small (Negative); Color,Urine Yellow; Glucose,Urine (UA) Negative (Negative); Hyaline Casts,Urine 1 /lpf (0-2); Ketones,Urine Negative (Negative); Leukocyte Esterase,Urine Negative (Negative); Mucus,Urine Few /hpf; Nitrite,Urine Negative (Negative); Protein,Urine Trace (Negative); RBC,Urine 20 /hpf (0-5); Specific Gravity,Urine 1.031 (1.001-1.035); Squamous Epithelial Cell,Urine 10 /hpf (0-4); WBC,Urine 2 /hpf (0-5)
[2024-08-22] MEDS: KETOROLAC 15 MG/ML 1 ML VIAL IVP STA (11:49)
[2024-08-22] MEDS: LACTATED RINGERS 1,000 ML IV ONE (11:49)
[2024-08-22 12:06] LABS: Basophils # (A) 0.07 10*3/uL (0.00-0.10); Basophils % (A) 0.5 %; Eosinophils # (A) 0.17 10*3/uL (0.04-0.35); Eosinophils % (A) 1.2 %; HCT 35.3 % (37.2-46.3); HGB 12.1 g/dL (12.0-15.0); Lymphocytes # (A) 1.44 10*3/uL (0.90-5.00); Lymphocytes % (A) 10.4 %; MCH 31.6 pg (27.0-32.0); MCHC 34.3 g/dL (32.0-37.0); MCV 92.2 fL (80.0-97.0); Mean Platelet Volume 8.6 fL (9.5-12.2); Monocytes # (A) 1.22 10*3/uL (0.20-1.00); Monocytes % (A) 8.8 %; Neutrophils # (A) 10.73 10*3/uL (1.80-7.70); Neutrophils % (A) 77.9 %; Platelet Count 440 10*3/uL (140-440); RBC 3.83 10*6/uL (4.10-5.20); RDW 13.2 % (11.5-14.5)
[2024-08-22 12:13] LABS: ALT 16 U/L (4-34); AST 23 U/L (14-36); African American GFR (CKD) >90 (>60 ml/min/1.73 sqM); Albumin 3.6 g/dL (3.5-5.0); Alkaline Phosphatase 99 U/L (38-126); Amylase 34 U/L (30-110); Anion Gap 8 mmol/L; Blood Urea Nitrogen 10 mg/dL (7-17); Calcium 9.6 mg/dL (8.4-10.2); Carbon Dioxide 27 mmol/L (22-30); Chloride 102 mmol/L (98-107); Glucose 110 mg/dL (74-99); Lipase 34 U/L (23-300); Non-African American GFR(CKD) >90 (>60 ml/min/1.73 sqM); Potassium 3.8 mmol/L (3.5-5.1); Sodium 137 mmol/L (137-145); Total Bilirubin 0.5 mg/dL (0.2-1.3); Total Protein 6.5 g/dL (6.3-8.2)
[2024-08-22 12:16] LABS: Influenza A Not Detected (Not Detectd); Influenza B Not Detected (Not Detectd); RSV Not Detected (Not Detectd)
--- NOTE | 2024-08-22 12:56 | CT ---
EXAMINATION TYPE: CT abdomen pelvis w con DATE OF EXAM: 08/22/2024 12:42 PM COMPARISON: None. CLINICAL INDICATION: Female, 44 years old with history of abd pain fever, ABD PAIN TECHNIQUE: Axial images were obtained from above the diaphragm to the pubic rami in the axial plane a t 5 mm thick sections. Reconstructed images are reviewed on the computer in the coronal plane. CONTRAST: 100 mL of Isovue 300. Study performed without Oral Contrast DLP: 1728.9 mGycm, Automated exposure control for dose reduction was used. FINDINGS: Limited CT sections are obtained the lung bases. The lung bases are clear. CT ABDOMEN: Liver: Mild fatty infiltration liver. Spleen: Normal Pancreas: Normal Adrenal glands: The adrenal glands are normal. Gallbladder: Surgically absent Kidneys: No masses are evident. No hydronephrosis is present. No cysts are present. Delayed images were obtained through the kidneys, which remain unremarkable. Aorta: Normal Inferior vena cava: Normal. CT PELVIS: Loops of bowel without contrast are nondilated. There are a few diverticuli within the sigmoid colon. There is a small bowel loop containing fluid within the left lower abdomen above the pelvic rim. Thi s study is lateral contrast limiting bowel evaluation. Appendix: Normal as visualized. Urinary bladder: Normal. Genitourinary structures: Uterus appears normal. The cystlike areas within the pelvis may be related to the bilateral ovaries. Largest on the right measures 7.2 x 3.7 cm. Largest on the left measures 6. 3 x 3.7 cm. There are multiple additional smaller areas. Neoplasm is not excluded. Additional workup with pelvic ultrasound is recommended. Consider hydrosalpinx within the differential. There is some mild inflammatory change adjacent. Hydropyosalpinx should be considered. Ovarian cysts are within the differential. Osseous structures: No suspicious lytic or sclerotic lesions. IMPRESSION: 1. Prominent fluid filled areas within bilateral adnexa with minimal adjacent inflammatory change. C onsider hydropyosalpinx. Multiple enlarged ovarian cysts should be considered. Neoplasm is within the differential. Correlate with laboratory results. Additional workup with pelvic ultrasound is recomme nded. [facility], , 08/22/2024 12:54 PM
[2024-08-22] MEDS: LACTATED RINGERS 500 ML IV ONE (15:07)
--- NOTE | 2024-08-22 15:12 | US ---
EXAMINATION TYPE: US transvaginal DATE OF EXAM: 08/22/2024 COMPARISON: US 2020 CLINICAL INDICATION: Female, 44 years old with history of abd pain right; Pelvic pain x 2 weeks TECHNIQUE: Transvaginal (TV) and Transabdominal (TA) . FINDINGS: Date of LMP: Unknown EXAM MEASUREMENTS: Uterus: 11.7 x 5.2 x 5.7 cm Endometrial Stripe: 0.5 cm Right Ovary: not seen Left Ovary: not seen Difficult and limited study due to patient body habitus 1. Uterus: anteverted, enlarged, heterogeneous, multiple nabothian cysts 2. Endometrium: fluid within fundal portion of endo 3. Right Ovary: not clearly visualized 4. Left Ovary: not clearly visualized 5. Bilateral Adnexa: Complex multi septated masslike prominence of the left ovary measuring 8.8 x 5. 4 x 4.7 cm. No definite internal color Doppler flow within the mass. Right adnexal multiseptated comp alden cystic mass measuring 8.8 x 5.5 x 9.8 cm. 6. Posterior cul-de-sac: wnl IMPRESSION: 1. Multiseptated complex cystic mass like prominence of the bilateral adnexa. Findings are indeterm inate for complex hemorrhagic cysts and/or hydrosalpinx. Discrete ovarian tissue not well visualized. Consider outpatient pelvic MRI with IV contrast for further evaluation as clinically indicated. 2. Nonspecific mild fluid distention of the endometrial canal. [facility], , 08/22/2024 3:09 PM
[2024-08-22] MEDS ORDERED: PIPERACILLIN-TAZOBACTAM 3.375 GM in SODIUM CHLORIDE 0.9% 100 ML IVPB ONE (16:00)
[2024-08-22] MEDS ORDERED: metroNIDAZOLE-NS PMX 500 MG in SALINE 1 100ML.BAG IVPB ONE (16:00)
[2024-08-22] MEDS ORDERED: NALOXONE 0.4 MG/ML 1 ML VIAL IV PRN (16:12)
[2024-08-22] MEDS: LACTATED RINGERS 1,000 ML IV SCH ×2 (16:24→18:12)
[2024-08-22] MEDS: ACETAMINOPHEN TAB 325 MG TAB PO PRN (18:12)
[2024-08-22] MEDS: METOPROLOL TARTRATE 50 MG TAB PO SCH (18:47)
[2024-08-22] MEDS: SUMAtriptan succinate 50 MG TAB PO STA (18:47)
--- NOTE | 2024-08-22 20:04 | P.OBCN ---
History of Present Illness Consult date: 08/22/24 Reason for consult: other (Bilateral ovarian cyst concerns for tubo-ovarian abscess) Chief complaint: Abdominal pain, left lower quadrant pain History of present illness: This is a 44-year-old 10 para 10 non patient that presented to the emergency department with increasing abdominal pain, specifically left lower quadrant pain. Patient states she was seen on the at [facility] with a similar complaint was diagnosed with a bladder infection and sent home on doxycycline and Keflex. Upon review of records CT was completed at that visit showing bilateral hydrosalpinx and a white count of 19. Patient states pain has increased therefore she presented to [facility]. Patient states she is not sexually active and has no concerns for STDs. she does note a daily white to yellow vaginal discharge, she wears a mini pad for this. upon review of prior visits she had an US done in 2019 and was admitted for TOA at that time, right ovary with 5 cm cystic area. Menstrual cycles are noted to be mostly regular heavy flow. 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 Noting positive urinary urgency with loose stools since her cholecystectomy was performed Review of Systems Constitutional: Reports fever, Denies chills, Denies fatigue Ears, nose, mouth and throat: Denies headache Cardiovascular: Denies leg edema Respiratory: Denies dyspnea Gastrointestinal: Reports as per HPI, Reports abdominal pain, Reports diarrhea Genitourinary: Denies Past Medical History Past Medical History: No Reported History Additional Past Medical History / Comment(s): Shroghren's, "fast heartbeat". Recent Darling's Palsy, was on Steroids, completed now. Hx Sepsis due to burst Ovarian Cyst burst. History of Any Multi-Drug Resistant Organisms: None Reported Past Surgical History: Cholecystectomy Additional Past Surgical History / Comment(s): Surgery for goldman on right leg. Past Anesthesia/Blood Transfusion Reactions: No Reported Reaction Past Psychological History: No Psychological Hx Reported, Anxiety Smoking Status: Former smoker Past Alcohol Use History: None Reported Additional Past Alcohol Use History / Comment(s): Has been smoking off and on since age 13, 1/2PPD. Past Drug Use History: None Reported - Past Family History Mother Family Medical History: Cancer Medications and Allergies Home Medications Medication Instructions Recorded Confirmed Type ALPRAZolam [Xanax] 1 mg PO TID PRN 01/26/21 08/22/24 History Atorvastatin [Lipitor] 10 mg PO DAILY 08/22/24 08/22/24 History Cephalexin [Keflex] 500 mg PO BID 08/22/24 08/22/24 History Doxycycline Monohydrate 100 mg PO BID 08/22/24 08/22/24 History Metoprolol Tartrate [Lopressor] 50 mg PO BID-W/MEALS 08/22/24 08/22/24 History Allergies Allergy/AdvReac Type Severity Reaction Status Date / Time No Known Allergies Allergy Verified 08/22/24 11:21 Exam Osteopathic Statement: *. No significant issues noted on an osteopathic struc tural exam other than those noted in the History and Physical/Consult. Vital Signs Temp Pulse Resp BP Pulse Ox 08/22/24 17:02 100 16 139/70 98 08/22/24 15:36 98.4 F 92 16 126/78 99 08/22/24 12:51 98.8 F 82 18 118/66 97 08/22/24 10:46 100.5 F H 119 H 17 131/83 96 Intake and Output 08/22/24 08/22/24 08/22/24 06:59 14:59 22:59 Other: Voiding Method Toilet Weight 119.295 kg 114.5 kg Upon entering the room patient is sitting in bed comfortably. Full exam was completed in the emergency department pelvic exam was not repeated. Results Result Diagrams: 08/22/24 11:45 08/22/24 11:45 Abnormal Lab Results - Last 24 Hours (Table) 08/22/24 08/22/24 08/22/24 Range/Units 11:13 11:45 11:45 WBC 13.80 H (4.50-10.00) 10*3/uL RBC 3.83 L (4.10-5.20) 10*6/uL Hct 35.3 L (37.2-46.3) % MPV 8.6 L (9.5-12.2) fL Immature Gran # 0.17 H (0.00-0.04) 10*3/uL Neutrophils # 10.73 H (1.80-7.70) 10*3/uL Monocytes # 1.22 H (0.20-1.00) 10*3/uL Glucose 110 H (74-99) mg/dL Urine Appearance Cloudy H (Clear) Urine Protein Trace H (Negative) Urine Blood Small H (Negative) Urine RBC 20 H (0-5) /hpf Ur Squamous Epith Cells 10 H (0-4) /hpf Urine Bacteria Rare H (None) /hpf Urine Mucus Few H (None) /hpf Assessment and Plan (1) Ovarian cyst Narrative/Plan: Current ultrasound reviewed with patient. Bilateral septated ovarian cysts are appreciated. Current Visit: Yes Status: Acute Code(s): N83.209 - UNSPECIFIED OVARIAN CYST, UNSPECIFIED SIDE SNOMED Code(s): 27157254 (2) TOA (tubo-ovarian abscess) Narrative/Plan: Prior ultrasound and current ultrasound discussed. Patient was begun on Zosyn and Flagyl. Current Visit: Yes Status: Acute Code(s): N70.93 - SALPINGITIS AND OOPHORITIS, UNSPECIFIED SNOMED Code(s): 35551081 Plan: Continue IV antibiotics as prescribed in ER, (Zosyn and Flagyl) Repeat CBC in a.m. Discussed with patient nature of infection and nonsurgical approach at this time. IV antibiotics to treat the infection and repeat ultrasound as an outpatient. Patient states she would ultimately like definitive surgery at some point. Risk of peritonitis discussed with surgical intervention at this time.
[2024-08-22] MEDS: PIPERACILLIN-TAZOBACTAM 3.375 GM in SODIUM CHLORIDE 0.9% 100 ML IVPB SCH (20:09)
[2024-08-22] MEDS: metroNIDAZOLE-NS PMX 500 MG in SALINE 1 100ML.BAG IVPB SCH (23:18)
[2024-08-23 04:35] LABS: Basophils # (A) 0.06 10*3/uL (0.00-0.10); Basophils % (A) 0.5 %; Eosinophils # (A) 0.16 10*3/uL (0.04-0.35); Eosinophils % (A) 1.4 %; HCT 32.1 % (37.2-46.3); Lymphocytes # (A) 1.77 10*3/uL (0.90-5.00); Lymphocytes % (A) 14.9 %; MCH 31.9 pg (27.0-32.0); MCHC 34.3 g/dL (32.0-37.0); Mean Platelet Volume 8.5 fL (9.5-12.2); Monocytes # (A) 0.96 10*3/uL (0.20-1.00); Monocytes % (A) 8.1 %; Neutrophils # (A) 8.71 10*3/uL (1.80-7.70); Neutrophils % (A) 73.6 %; Platelet Count 405 10*3/uL (140-440); RBC 3.45 10*6/uL (4.10-5.20); RDW 13.2 % (11.5-14.5); WBC 11.84 10*3/uL (4.50-10.00)
[2024-08-23] MEDS: PIPERACILLIN TAZOBACTAM IVPB SCH (07:07)
[2024-08-23] MEDS: WATER IVPB SCH (07:07)
[2024-08-23] MEDS: DEXTROSE 5% IVPB SCH (07:07)
[2024-08-23] MEDS: ATORVASTATIN 10 MG TAB PO SCH (08:02)
[2024-08-23] MEDS: IBUPROFEN 400 MG TAB PO PRN (08:02)
[2024-08-23] MEDS: ONDANSETRON 4 MG/2 ML VIAL IVP PRN (12:19)
[2024-08-23] MEDS: SODIUM CHLORIDE 0.9% 1,000 ML IV SCH (14:45)
[2024-08-23] MEDS: SUMAtriptan succinate 50 MG TAB PO PRN (15:48)
[2024-08-23] MEDS: SODIUM CHLORIDE 0.9% 500 ML 500 ML IV SCH (15:49)
--- NOTE | 2024-08-23 19:18 | P.HPIM ---
History of Present Illness H&P Date: 08/23/24 Chief Complaint: Abdominal pain Patient is a 44-year-old female with a past medical history of rapid heart rate, prior history of smoking and anxiety presents to ER with complaints of abdominal pain for the past 1 and half week. Patient states that she has been having pain across the lower abdomen. Patient was seen at [facility] on 08/19/2024. She was discharged home with antibiotics Keflex and doxycycline. But since pain has been worsening patient presented to ER at [facility]. Patient was febrile with Tmax 100.5 on admission and also tachycardic on admission. She also noticed yellowish to whitish vaginal discharge recently. Patient states that she had prior history of ovarian cyst in 2019. CT IV abdomen pelvis showed prominent fluid-filled areas within the bilateral adnexa with minimal adjacent inflammatory changes. Consider [place] pyosalpinx. Multiple enlarged ovarian cysts should be considered. Neoplasm is within the differential. Correlate with laboratory results. Chest x-ray showed no acute pulmonary process. Transvaginal ultrasound showed multiseptated complex cystic masslike prominence of the bilateral adnexa. Findings are intermediate for the complex hemorrhagic cyst and/or hydrosalpinx. Discrete ovarian tissue not well-visualized. Consider outpatient pelvic MRI with IV contrast for further evaluation. Laboratory data showed WBC 13.0 hemoglobin 12.1 platelets 440 sodium 137 potassium 3.8 chloride 102 bicarb is 27 BUN 10 and creatinine 0.58 and blood sugar 110 lactic acid 1.1 Urinalysis showed cloudy with trace protein small blood leukocyte esterase negative RBCs 20 and squamous epithelial cells 10 and WBCs 2 Influenza A B RSV and COVID-19 PCR not detected. ROS Constitutional: Patient does have fever on admission. No chills. No generalized weakness or weight loss. Abdomen: Patient denied nausea vomiting and diarrhea. Patient does have lower abdominal abdominal pain. Cardiovascular: Patient denies any chest pain or short of breath no palpitations. Respiratory: patient denied any cough or sputum production. No shortness of breath Neurologic: Patient denied any numbness or tingling. no headache. Musculoskeletal: Patient denies any complaints of joint swelling or deformity. Skin: Negative Psychiatric: Negative Endocrine: No heat or cold intolerance. No recent weight gain. Genitourinary: No dysuria or hematuria. All other 14 point ROS negative except the above PHYSICAL EXAMINATION: Patient is lying in the bed comfortably, no acute distress, awake alert and oriented.. HEENT: Normocephalic. Neck is supple. Pupils reactive. Nostrils clear. Oral cavity is moist. Neck reveals no JVD, carotid bruits, or thyromegaly. CHEST EXAMINATION: Trachea is central. Symmetrical expansion. Lung smith clear to auscultation and percussion. CARDIAC: Normal S1, S2 with no gallops. No murmurs ABDOMEN: Soft. Bowel sounds present. Lower abdominal tenderness. No guarding.. No organomegaly. Extremities: reveal no edema. No clubbing or cyanosis Neurologically awake, alert, oriented x3 with well-coordinated movements. No focal deficits noted Skin: No rash or skin lesions. Psychiatric: Coperative. Nonsuicidal Musculoskeletal: No joint swelling or deformity. Normal range of motion. Assessment and plan Bilateral hydro pyosalpinx/tubo-ovarian abscess Sepsis secondary to above Multiseptated complex cystic masslike prominence of the bilateral adnexa Prior history of ovarian cyst Anxiety Prior history of smoking DVT prophylax with heparin subcu Plan: Patient will be continued on IV hydration and antibiotics in the form of Zosyn and also on Flagyl. Follow-up culture reports. Continue with home medication including metoprolol. Pain management. Follow-up culture reports. [facility] service and ID is on board. Continue to follow closely. Past Medical History Past Medical History: No Reported History Additional Past Medical History / Comment(s): Shroghren's, "fast heartbeat". Recent Darling's Palsy, was on Steroids, completed now. Hx Sepsis due to burst Ovarian Cyst burst. History of Any Multi-Drug Resistant Organisms: None Reported Past Surgical History: Cholecystectomy Additional Past Surgical History / Comment(s): Surgery for goldman on right leg. Past Anesthesia/Blood Transfusion Reactions: No Reported Reaction Past Psychological History: No Psychological Hx Reported, Anxiety Smoking Status: Former smoker Past Alcohol Use History: None Reported Additional Past Alcohol Use History / Comment(s): Has been smoking off and on since age 13, 1/2PPD. Past Drug Use History: None Reported - Past Family History Mother Family Medical History: Cancer Medications and Allergies Home Medications Medication Instructions Recorded Confirmed Type ALPRAZolam [Xanax] 1 mg PO TID PRN 01/26/21 08/22/24 History Atorvastatin [Lipitor] 10 mg PO DAILY 08/22/24 08/22/24 History Cephalexin [Keflex] 500 mg PO BID 08/22/24 08/22/24 History Doxycycline Monohydrate 100 mg PO BID 08/22/24 08/22/24 History Metoprolol Tartrate [Lopressor] 50 mg PO BID-W/MEALS 08/22/24 08/22/24 History Allergies Allergy/AdvReac Type Severity Reaction Status Date / Time No Known Allergies Allergy Verified 08/22/24 11:21 Physical Exam Vitals: Vital Signs Temp Pulse Pulse Resp BP BP Pulse Ox 08/23/24 07:17 98.2 F 88 17 129/82 97 08/23/24 01:35 99.2 F 93 18 117/76 96 08/22/24 19:23 99.5 F 93 20 116/72 93 L 08/22/24 17:02 100 16 139/70 98 08/22/24 15:36 98.4 F 92 16 126/78 99 08/22/24 12:51 98.8 F 82 18 118/66 97 08/22/24 10:46 100.5 F H 119 H 17 131/83 96 Intake and Output 08/22/24 08/23/24 08/23/24 22:59 06:59 14:59 Intake Total 2340 Balance 2340 Intake: Intake, IV Titration 1800 Amount Lactated Ringers 1,000 ml 1500 @ 125 mls/hr IV .Q8H [facility] Rx#:[id number] Piperacillin-Tazobactam 3 200 .375 gm In Sodium Chloride 0.9% 100 ml @ 25 mls/hr IVPB Q8H [facility] Rx#: [id number] metroNIDAZOLE-NS PMX 500 100 mg In Saline 1 100ml.bag @ 100 mls/hr IVPB ONCE ONE Rx#:[id number] Oral 540 Other: Voiding Method Toilet # Voids 4 Weight 114.5 kg Results CBC & Chem 7: 08/23/24 04:14 08/22/24 11:45 Labs: Abnormal Lab Results - Last 24 Hours (Table) 08/22/24 08/22/24 08/22/24 Range/Units 11:13 11:45 11:45 WBC 13.80 H (4.50-10.00) 10*3/uL RBC 3.83 L (4.10-5.20) 10*6/uL Hgb (12.0-15.0) g/dL Hct 35.3 L (37.2-46.3) % MPV 8.6 L (9.5-12.2) fL Immature Gran # 0.17 H (0.00-0.04) 10*3/uL Neutrophils # 10.73 H (1.80-7.70) 10*3/uL Monocytes # 1.22 H (0.20-1.00) 10*3/uL Glucose 110 H (74-99) mg/dL Urine Appearance Cloudy H (Clear) Urine Protein Trace H (Negative) Urine Blood Small H (Negative) Urine RBC 20 H (0-5) /hpf Ur Squamous Epith Cells 10 H (0-4) /hpf Urine Bacteria Rare H (None) /hpf Urine Mucus Few H (None) /hpf // Range/Units 04:14 WBC 11.84 H (4.50-10.00) 10*3/uL RBC 3.45 L (4.10-5.20) 10*6/uL Hgb 11.0 L (12.0-15.0) g/dL Hct 32.1 L (37.2-46.3) % MPV 8.5 L (9.5-12.2) fL Immature Gran # 0.18 H (0.00-0.04) 10*3/uL Neutrophils # 8.71 H (1.80-7.70) 10*3/uL Monocytes # (0.20-1.00) 10*3/uL Glucose (74-99) mg/dL Urine Appearance (Clear) Urine Protein (Negative) Urine Blood (Negative) Urine RBC (0-5) /hpf Ur Squamous Epith Cells (0-4) /hpf Urine Bacteria (None) /hpf Urine Mucus (None) /hpf Thrombosis Risk Factor Assmnt - Choose All That Apply Any of the Below Risk Factors Present?: Yes Each Factor Represents 1 point: Age 41-60 years, Obesity (BMI >25) Other Risk Factors: No Other congenital or acquired thrombophilia - If yes, enter type in comment: No Thrombosis Risk Factor Assessment Total Risk Factor Score: 2 Thrombosis Risk Factor Assessment Level: Low Risk Assessment and Plan Time with Patient: Greater than 30
[2024-08-23] MEDS: ALPRAZolam 1 MG TAB PO PRN (22:51)
--- NOTE | 2024-08-23 23:05 | P.CONS ---
History of Present Illness - Reason for Consult Consult date: 08/23/24 Tubo-ovarian abscess Requesting physician: Mary Garcia - Chief Complaint Abdominal pain x days - History of Present Illness Patient is a 44-year-old female with past medical history significant for Sjogren's syndrome presenting to the hospital for evaluation of right-sided abdominal pain that apparently been going on for about a week patient denies any history of any trauma describing the pain to be sharp moderate to severe intensity without any radiation did have some nausea but no vomiting denies any diarrhea constipation did have some vaginal drainage patient was evaluated for the same problem at [facility] ER on 08/18/2024 with the patient was diagnosed with possible UTI treated with Doxy and Keflex without improvement with worsening symptoms the patient presented to [facility] ER on presentation the hospital she did have temperature of 100.5 F patient was tachycardic heart rate of 93 but not hypotensive or hypoxic or need for supplemental oxygen patient did have white count of 13.80 with left shift creatinine 0.58 UA mildly positive influenza RSV COVID testing was negative patient did have abdominal pelvis CT with tissues prominent fluid-filled areas within the bilateral adnexa with adjacent inflammatory changes consider hydropyosalpinx, patient has been started on Zosyn and Flagyl infectious disease was consulted for further management of antibiotic therapy patient has been eval by OB and not recommending any surgical intervention at this point Review of Systems Positive point and negatives has been mentioned in the HPI, complete review of systems was performed and all other systems are negative Past Medical History Past Medical History: No Reported History Additional Past Medical History / Comment(s): Shroghren's, "fast heartbeat". Recent Darling's Palsy, was on Steroids, completed now. Hx Sepsis due to burst Ovarian Cyst burst. History of Any Multi-Drug Resistant Organisms: None Reported Past Surgical History: Cholecystectomy Additional Past Surgical History / Comment(s): Surgery for goldman on right leg. Past Anesthesia/Blood Transfusion Reactions: No Reported Reaction Past Psychological History: No Psychological Hx Reported, Anxiety Smoking Status: Former smoker Past Alcohol Use History: None Reported Additional Past Alcohol Use History / Comment(s): Has been smoking off and on since age 13, 1/2PPD. Past Drug Use History: None Reported - Past Family History Mother Family Medical History: Cancer Medications and Allergies Home Medications Medication Instructions Recorded Confirmed Type ALPRAZolam [Xanax] 1 mg PO TID PRN 01/26/21 08/22/24 History Atorvastatin [Lipitor] 10 mg PO DAILY 08/22/24 08/22/24 History Cephalexin [Keflex] 500 mg PO BID 08/22/24 08/22/24 History Doxycycline Monohydrate 100 mg PO BID 08/22/24 08/22/24 History Metoprolol Tartrate [Lopressor] 50 mg PO BID-W/MEALS 08/22/24 08/22/24 History Allergies Allergy/AdvReac Type Severity Reaction Status Date / Time No Known Allergies Allergy Verified 08/22/24 11:21 Physical Exam Vitals: Vital Signs Temp Pulse Pulse Resp BP BP Pulse Ox 08/23/24 07:17 98.2 F 88 17 129/82 97 08/23/24 01:35 99.2 F 93 18 117/76 96 08/22/24 19:23 99.5 F 93 20 116/72 93 L 08/22/24 17:02 100 16 139/70 98 08/22/24 15:36 98.4 F 92 16 126/78 99 08/22/24 12:51 98.8 F 82 18 118/66 97 Intake and Output 08/22/24 08/23/24 08/23/24 22:59 06:59 14:59 Intake Total 2340 Balance 2340 Intake: Intake, IV Titration 1800 Amount Lactated Ringers 1,000 ml 1500 @ 125 mls/hr IV .Q8H [facility] Rx#:[id number] Piperacillin-Tazobactam 3 200 .375 gm In Sodium Chloride 0.9% 100 ml @ 25 mls/hr IVPB Q8H [facility] Rx#: [id number] metroNIDAZOLE-NS PMX 500 100 mg In Saline 1 100ml.bag @ 100 mls/hr IVPB ONCE ONE Rx#:[id number] Oral 540 Other: Voiding Method Toilet # Voids 4 Weight 114.5 kg GENERAL DESCRIPTION: Middle-age female lying in bed, no distress. No tachypnea or accessory muscle of respiration use. HEENT: Shows Pallor , no scleral icterus. Oral mucous membrane is dry. No pharyngeal erythema or thrush NECK: Trachea central, no thyromegaly. LUNGS: Unlabored breathing. Clear to auscultation anteriorly. No wheeze or crackle. HEART: S1, S2, regular rate and rhythm. No loud murmur ABDOMEN: Soft, no tenderness , guarding or rigidity, no organomegaly EXTREMITIES: No edema of feet. SKIN: No rash, no masses palpable. NEUROLOGICAL: The patient is awake, alert, oriented x3, mood and affect normal. Results CBC & Chem 7: 08/23/24 04:14 08/22/24 11:45 Labs: Abnormal Lab Results - Last 24 Hours (Table) 08/22/24 08/22/24 08/22/24 Range/Units 11:13 11:45 11:45 WBC 13.80 H (4.50-10.00) 10*3/uL RBC 3.83 L (4.10-5.20) 10*6/uL Hgb (12.0-15.0) g/dL Hct 35.3 L (37.2-46.3) % MPV 8.6 L (9.5-12.2) fL Immature Gran # 0.17 H (0.00-0.04) 10*3/uL Neutrophils # 10.73 H (1.80-7.70) 10*3/uL Monocytes # 1.22 H (0.20-1.00) 10*3/uL Glucose 110 H (74-99) mg/dL Urine Appearance Cloudy H (Clear) Urine Protein Trace H (Negative) Urine Blood Small H (Negative) Urine RBC 20 H (0-5) /hpf Ur Squamous Epith Cells 10 H (0-4) /hpf Urine Bacteria Rare H (None) /hpf Urine Mucus Few H (None) /hpf 08/23/24 Range/Units 04:14 WBC 11.84 H (4.50-10.00) 10*3/uL RBC 3.45 L (4.10-5.20) 10*6/uL Hgb 11.0 L (12.0-15.0) g/dL Hct 32.1 L (37.2-46.3) % MPV 8.5 L (9.5-12.2) fL Immature Gran # 0.18 H (0.00-0.04) 10*3/uL Neutrophils # 8.71 H (1.80-7.70) 10*3/uL Monocytes # (0.20-1.00) 10*3/uL Glucose (74-99) mg/dL Urine Appearance (Clear) Urine Protein (Negative) Urine Blood (Negative) Urine RBC (0-5) /hpf Ur Squamous Epith Cells (0-4) /hpf Urine Bacteria (None) /hpf Urine Mucus (None) /hpf Assessment and Plan (1) Sepsis Current Visit: Yes Status: Acute Code(s): A41.9 - SEPSIS, UNSPECIFIED ORGANISM SNOMED Code(s): 46432566 (2) TOA (tubo-ovarian abscess) Current Visit: Yes Status: Acute Code(s): N70.93 - SALPINGITIS AND OOPHORITIS, UNSPECIFIED SNOMED Code(s): 17960859 Plan: 1patient was in the hospital with sepsis in this patient who did have fever t achycardia elevated white count bradycardia versus also likely tubo-ovarian abscess failing outpatient oral Keflex and doxycycline therapy, patient has been eval by ESTHETICS INSTRUCTOR not recommending any surgical invention at this point 2-we will review the CT with radiologist to see if they can obtain sample for culture 3-for now we will treat the patient with Zosyn while waiting for the workup to be completed Question concern answered We will follow on clinical condition and cultures to further adjust medication if needed Thank you for this consultation we will follow the patient along with you Dictation was produced using [employer] dictation software. please excuse any grammatical, word or spelling errors. Time with Patient: Greater than 30
[2024-08-24] MEDS: HEPARIN SODIUM,PORCINE 5,000 UNIT/ML 1 ML VIAL SQ SCH (00:10)
[2024-08-24 08:30] LABS: BUN/Creat Ratio 8.83 Ratio (12.00-20.00); Blood Urea Nitrogen 5.3 mg/dL (9.0-27.0); Chloride 107 mmol/L (96-109); Glucose 114 mg/dL (70-110); Potassium 3.7 mmol/L (3.5-5.5); Sodium 139 mmol/L (135-145)
[2024-08-24 08:31] LABS: Calcium 8.2 mg/dL (8.7-10.3); Carbon Dioxide 21.3 mmol/L (21.6-31.8)
[2024-08-24 08:59] LABS: Basophils # (A) 0.07 X 10*3/uL (0.00-0.10); Basophils % (A) 0.5 %; Eosinophils # (A) 0.17 X 10*3/uL (0.04-0.35); Eosinophils % (A) 1.3 %; HCT 32.3 % (37.2-46.3); HGB 10.5 g/dL (12.0-15.0); Lymphocytes # (A) 1.74 X 10*3/uL (0.90-5.00); Lymphocytes % (A) 12.9 %; MCH 31.2 pg (27.0-32.0); MCHC 32.5 g/dL (32.0-37.0); MCV 95.8 FL (80.0-97.0); Monocytes # (A) 1.13 X 10*3/uL (0.20-1.00); Monocytes % (A) 8.4 %; NRBC Per 100 WBC 0 X 10*3/uL (0.00-0.01); Neutrophils # (A) 10.16 X 10*3/uL (1.80-7.70); Neutrophils % (A) 75.3 %; Platelet Count 420 X 10*3/uL (140-440); RBC 3.37 X 10*6/uL (4.10-5.20); RDW 13.3 % (11.5-14.5); WBC 13.49 X 10*3/uL (4.50-10.00)
[2024-08-24 13:42] LABS: C. trachomatis,PCR Negative (Negative)
--- NOTE | 2024-08-24 15:02 | P.PN ---
Subjective Progress Note Date: 08/24/24 Principal diagnosis: Reason for follow-up is tubo-ovarian abscess Patient is a 44-year-old female with past medical history significant for Sjogren's syndrome presenting to the hospital for evaluation of right-sided abdominal pain, patient been diagnosed with a tubo-ovarian abscess failing outpatient oral antibiotic therapy. On today's evaluation that is 08/24/2024, Patient is afebrile this morning patient denies having any chest pain shortness of breath or cough, the patient is currently on room air, patient denies any nausea no vomiting, abdominal pain slightly decreased in intensity. Patient white count is 13.49 creatinine 0.6 blood cultures are pending Objective - Vital Signs Vital signs: Vital Signs Temp 98.0 F 08/24/24 12:05 Pulse 85 08/24/24 12:05 Resp 16 08/24/24 12:05 BP 132/78 08/24/24 12:05 Pulse Ox 95 08/24/24 12:05 FiO2 Intake & Output 08/23/24 08/24/24 08/24/24 18:59 06:59 18:59 Intake Total 1225 1320 Balance 1225 1320 Intake: Intake, IV Titration 1225 1200 Amount Lactated Ringers 1,000 ml 625 @ 125 mls/hr IV .Q8H [facility] Rx#:[id number] Piperacillin-Tazobactam 3 100 200 .375 gm In Sodium Chloride 0.9% 100 ml @ 25 mls/hr IVPB Q8H [facility] Rx#: [id number] Sodium Chloride 0.9% 1, 300 800 000 ml @ 75 mls/hr IV . [id number] [facility] Rx#:[id number] metroNIDAZOLE-NS PMX 500 200 200 mg In Saline 1 100ml.bag @ 100 mls/hr IVPB Q8HR [facility] Rx#:[id number] Oral 120 Other: Voiding Method Toilet # Voids 2 2 - Exam GENERAL DESCRIPTION: Middle-age female up in the chair in no distress RESPIRATORY SYSTEM: Unlabored breathing , decreased breath sounds at bases HEART: S1 S2 regular rate and rhythm , ABDOMEN: Soft , no tenderness EXTREMITIES: No edema feet - Labs CBC & Chem 7: 08/24/24 04:43 08/24/24 04:43 Labs: Abnormal Lab Results - Last 24 Hours (Table) 08/24/24 08/24/24 Range/Units 04:43 04:43 WBC 13.49 H (4.50-10.00) X 10*3/uL RBC 3.37 L (4.10-5.20) X 10*6/uL Hgb 10.5 L (12.0-15.0) g/dL Hct 32.3 L (37.2-46.3) % MPV 9.0 L (9.5-12.2) [place] Immature Gran # 0.22 H (0.00-0.04) X 10*3/uL Neutrophils # 10.16 H (1.80-7.70) X 10*3/uL Monocytes # 1.13 H (0.20-1.00) X 10*3/uL Carbon Dioxide 21.3 L (21.6-31.8) mmol/L BUN 5.3 L (9.0-27.0) mg/dL BUN/Creatinine Ratio 8.83 L (12.00-20.00) Ratio Glucose 114 H (70-110) mg/dL Calcium 8.2 L (8.7-10.3) mg/dL Microbiology - Last 24 Hours (Table) 08/22/24 13:23 Blood Culture - Preliminary Blood Assessment and Plan (1) Sepsis Current Visit: Yes Status: Acute Code(s): A41.9 - SEPSIS, UNSPECIFIED ORGANISM SNOMED Code(s): 62942349 (2) TOA (tubo-ovarian abscess) Current Visit: Yes Status: Acute Code(s): N70.93 - SALPINGITIS AND OOPHORITIS, UNSPECIFIED SNOMED Code(s): 48943387 Plan: 1patient was in the hospital with sepsis in this patient who did have fever tachycardia elevated white count bradycardia versus also likely tubo-ovarian ab scess failing outpatient oral Keflex and doxycycline therapy, patient has been eval by SHIP WORKER not recommending any surgical invention at this point 2- CT of abdominal pelvis was reviewed with radiologist mention no severe to aspirate 3-we will treat with Zosyn and monitor white count closely as it has slightly gone up if any further worsening of the white count may need a repeat CT and reevaluation by OB Dictation was produced using [employer] dictation software. please excuse any grammatical, word or spelling errors. Time with Patient: Less than 30
[2024-08-24 15:05] LABS: N. gonorrhoeae,PCR Negative (Negative)
--- NOTE | 2024-08-25 04:22 | P.PN ---
Subjective Progress Note Date: 08/24/24 Patient is a 44-year-old female with a past medical history of rapid heart rate, prior history of smoking and anxiety presents to ER with complaints of abdominal pain for the past 1 and half week. Patient states that she has been having pain across the lower abdomen. Patient was seen at [facility] on 08/19/2024. She was discharged home with antibiotics Keflex and doxycycline. But since pain has been worsening patient presented to ER at [facility]. Patient was febrile with Tmax 100.5 on admission and also tachycardic on admission. She also noticed yellowish to whitish vaginal discharge recently. Patient states that she had prior history of ovarian cyst in 2019. CT IV abdomen pelvis showed prominent fluid-filled areas within the bilateral adnexa with minimal adjacent inflammatory changes. Consider [place] pyosalpinx. Multiple enlarged ovarian cysts should be considered. Neoplasm is within the differential. Correlate with laboratory results. Chest x-ray showed no acute pulmonary process. Transvaginal ultrasound showed multiseptated complex cystic masslike prominence of the bilateral adnexa. Findings are intermediate for the complex hemorrhagic cyst and/or hydrosalpinx. Discrete ovarian tissue not well-visualized. Consider outpatient pelvic MRI with IV contrast for further evaluation. Laboratory data showed WBC 13.0 hemoglobin 12.1 platelets 440 sodium 137 potassium 3.8 chloride 102 bicarb is 27 BUN 10 and creatinine 0.58 and blood sugar 110 lactic acid 1.1 Urinalysis showed cloudy with trace protein small blood leukocyte esterase negative RBCs 20 and squamous epithelial cells 10 and WBCs 2 Influenza A B RSV and COVID-19 PCR not detected. 08/24/2024 Patient is seen in follow-up continued on IV antibiotics being followed by infectious disease. Patient was evaluated by METAL DOOR ASSEMBLER recommending antibiotic therapy and conservative management for now and outpatient follow-up for possible surgical intervention if needed. Blood cultures thus far remain negative and patient is afebrile although white count elevated at 13 and will follow-up with repeat labs. Encouraged increase activity as tolerated and getting up out of the bed more frequently. Patient reports her pain is somewhat manageable and is maintained on Tylenol/Motrin. Patient reports is urinating with no difficulties and had a very small bowel movement. Patient denies any bleeding at this time and last menstrual period was 2 weeks ago approximately. Review of systems: Constitutional: No reports of fatigue, fever, or chills Cardiovascular: No reports of chest pain or palpitations Respiratory: No reports of shortness of breath or cough GI: reports of occasional nausea, no vomiting, or diarrhea, reports diffuse abdominal discomfort : No reports of dysuria or retention Neurovascular: No reports of weakness or numbness All medications have been reviewed PHYSICAL EXAMINATION: Patient is sitting up in the bed comfortably, no acute distress, awake alert and oriented.. Well-developed, obese HEENT: Normocephalic. Neck is supple. Pupils reactive. Nostrils clear. Oral cavity is moist. Neck reveals no JVD, carotid bruits, or thyromegaly. CHEST EXAMINATION: Trachea is central. Symmetrical expansion. Lung smith clear to auscultation and percussion. CARDIAC: Normal S1, S2 with no gallops. No murmurs ABDOMEN: Soft. Bowel sounds present. Lower abdominal tenderness noted on palpation. No guarding.. No organomegaly. Extremities: reveal no edema. No clubbing or cyanosis Neurologically awake, alert, oriented x3 with well-coordinated movements. No focal deficits noted Skin: No rash or skin lesions. Psychiatric: Cooperative. Non-suicidal Musculoskeletal: No joint swelling or deformity. Normal range of motion. Assessment: Bilateral hydro pyosalpinx/tubo-ovarian abscess Sepsis secondary to above Multi-septated complex cystic masslike prominence of the bilateral adnexa Prior history of ovarian cyst Anxiety history Obesity with a BMI of 38.4 Prior history of smoking GI prophylaxis DVT prophylax with heparin subcu Full code Plan: Patient will be continued on IV hydration and antibiotics in the form of Zosyn and also on Flagyl. Follow-up culture reports. Blood cultures thus far remain negative with infectious disease following and will discuss further regarding discharge antibiotics Continue with home medication including metoprolol. Pain management. METAL DOOR ASSEMBLER service has evaluated the patient with no plans of surgical intervention at this time recommending conservative management with continued antibiotics and outpatient follow-up for reevaluation. Encouraged increase activity as tolerated White count was elevated at 13 and will follow-up on repeat labs. Awaiting to discuss further with infectious disease regarding discharge planni ng, possibly in the next 24 to 48 hours The impression and plan of care has been dictated by Vianey Griffiths, Nurse Practitioner as directed. Dr. Esther MD I have performed a history and examination and MDM of this patient, discussed the same with the dictator, and agree with the dictator's assessment and plan as written ,documented as a scribe. Based on total visit time, I have performed more than 50% of the visit. Objective - Vital Signs Vital signs: Vital Signs Temp 97.8 F 08/24/24 08:00 Pulse 89 08/24/24 08:00 Resp 17 08/24/24 08:00 BP 122/72 08/24/24 08:00 Pulse Ox 98 08/24/24 08:00 FiO2 Intake & Output 08/23/24 08/24/24 08/24/24 18:59 06:59 18:59 Intake Total 1225 1320 Balance 1225 1320 Intake: Intake, IV Titration 1225 1200 Amount Lactated Ringers 1,000 ml 625 @ 125 mls/hr IV .Q8H LILIANA Rx#:[id number] Piperacillin-Tazobactam 3 100 200 .375 gm In Sodium Chloride 0.9% 100 ml @ 25 mls/hr IVPB Q8H LILIANA Rx#: [id number] Sodium Chloride 0.9% 1, 300 800 000 ml @ 75 mls/hr IV . [id number] LILIANA Rx#:[id number] metroNIDAZOLE-NS PMX 500 200 200 mg In Saline 1 100ml.bag @ 100 mls/hr IVPB Q8HR LILIANA Rx#:[id number] Oral 120 Other: Voiding Method Toilet # Voids 2 2 - Labs CBC & Chem 7: 08/24/24 04:43 08/24/24 04:43 Labs: Abnormal Lab Results - Last 24 Hours (Table) 08/24/24 08/24/24 Range/Units 04:43 04:43 WBC 13.49 H (4.50-10.00) X 10*3/uL RBC 3.37 L (4.10-5.20) X 10*6/uL Hgb 10.5 L (12.0-15.0) g/dL Hct 32.3 L (37.2-46.3) % MPV 9.0 L (9.5-12.2) FL Immature Gran # 0.22 H (0.00-0.04) X 10*3/uL Neutrophils # 10.16 H (1.80-7.70) X 10*3/uL Monocytes # 1.13 H (0.20-1.00) X 10*3/uL Carbon Dioxide 21.3 L (21.6-31.8) mmol/L BUN 5.3 L (9.0-27.0) mg/dL BUN/Creatinine Ratio 8.83 L (12.00-20.00) Ratio Glucose 114 H (70-110) mg/dL Calcium 8.2 L (8.7-10.3) mg/dL Microbiology - Last 24 Hours (Table) 08/22/24 13:23 Blood Culture - Preliminary Blood
[2024-08-25 08:35] LABS: Basophils # (A) 0.07 X 10*3/uL (0.00-0.10); Basophils % (A) 0.6 %; Eosinophils # (A) 0.19 X 10*3/uL (0.04-0.35); Eosinophils % (A) 1.7 %; HCT 32.1 % (37.2-46.3); HGB 10.6 g/dL (12.0-15.0); Lymphocytes # (A) 1.63 X 10*3/uL (0.90-5.00); Lymphocytes % (A) 14.3 %; MCH 31.8 pg (27.0-32.0); MCV 96.4 FL (80.0-97.0); Mean Platelet Volume 8.6 FL (9.5-12.2); Monocytes # (A) 0.94 X 10*3/uL (0.20-1.00); Monocytes % (A) 8.2 %; NRBC Per 100 WBC 0 X 10*3/uL (0.00-0.01); Neutrophils # (A) 8.35 X 10*3/uL (1.80-7.70); Neutrophils % (A) 73.1 %; Platelet Count 410 X 10*3/uL (140-440); RBC 3.33 X 10*6/uL (4.10-5.20); RDW 13.4 % (11.5-14.5); WBC 11.42 X 10*3/uL (4.50-10.00)
[2024-08-25 09:23] LABS: Blood Urea Nitrogen 4.5 mg/dL (9.0-27.0); Calcium 8.4 mg/dL (8.7-10.3); Carbon Dioxide 20.8 mmol/L (21.6-31.8); Chloride 107 mmol/L (96-109); Glucose 96 mg/dL (70-110); Potassium 3.6 mmol/L (3.5-5.5); Sodium 139 mmol/L (135-145)
[2024-08-25 13:12] VITALS: BP 147/81; PULSE 79; RESP 19; TEMP 98.1
--- NOTE | 2024-08-26 13:12 | P.PN ---
Subjective Progress Note Date: 08/25/24 Principal diagnosis: Reason for follow-up is tubo-ovarian abscess Patient is a 44-year-old female with past medical history significant for Sjogren's syndrome presenting to the hospital for evaluation of right-sided abdominal pain, patient been diagnosed with a tubo-ovarian abscess failing outpatient oral antibiotic therapy. On today's evaluation that is 08/25/2024,the patient denies any fever or any chills, patient is breathing comfortably on room air, the patient denies chest pain shortness of breath and no significant cough, patient abdominal pain has decreased in intensity no nausea vomiting. Patient white count down to 11.42, creatinine 0.5 Objective - Vital Signs Vital signs: Vital Signs Temp 98.2 F 08/25/24 07:25 Pulse 76 08/25/24 07:25 Resp 16 08/25/24 07:25 BP 130/70 08/25/24 07:25 Pulse Ox 96 08/25/24 07:25 FiO2 Intake & Output 08/24/24 08/25/24 08/25/24 18:59 06:59 18:59 Intake Total 780 1590 240 Output Total 1 Balance 780 1589 240 Intake: Intake, IV Titration 1050 Amount Piperacillin-Tazobactam 3 200 .375 gm In Sodium Chloride 0.9% 100 ml @ 25 mls/hr IVPB Q8H LIL[facility]NA Rx#: [id number] Sodium Chloride 0.9% 1, 750 000 ml @ 75 mls/hr IV . [id number] LILIANA Rx#:[id number] metroNIDAZOLE-NS PMX 500 100 mg In Saline 1 100ml.bag @ 100 mls/hr IVPB Q8HR LILIANA Rx#:[id number] Oral 780 540 240 Output: Stool 1 Other: Voiding Method Toilet # Voids 1 - Exam GENERAL DESCRIPTION: Middle-age female up in the chair in no distress RESPIRATORY SYSTEM: Unlabored breathing , decreased breath sounds at bases HEART: S1 S2 regular rate and rhythm , ABDOMEN: Soft , no tenderness EXTREMITIES: No edema feet - Labs CBC & Chem 7: 08/25/24 04:11 08/25/24 04:11 Labs: Abnormal Lab Results - Last 24 Hours (Table) 08/25/24 08/25/24 Range/Units 04:11 04:11 WBC 11.42 H (4.50-10.00) X 10*3/uL RBC 3.33 L (4.10-5.20) X 10*6/uL Hgb 10.6 L (12.0-15.0) g/dL Hct 32.1 L (37.2-46.3) % MPV 8.6 L (9.5-12.2) FL Immature Gran # 0.24 H (0.00-0.04) X 10*3/uL Neutrophils # 8.35 H (1.80-7.70) X 10*3/uL Carbon Dioxide 20.8 L (21.6-31.8) mmol/L BUN 4.5 L (9.0-27.0) mg/dL Creatinine 0.5 L (0.6-1.5) mg/dL BUN/Creatinine Ratio 9.00 L (12.00-20.00) Ratio Calcium 8.4 L (8.7-10.3) mg/dL Microbiology - Last 24 Hours (Table) 08/22/24 13:23 Blood Culture - Preliminary Blood Assessment and Plan (1) Sepsis Status: Acute Code(s): A41.9 - SEPSIS, UNSPECIFIED ORGANISM SNOMED Code(s): 79558613 (2) TOA (tubo-ovarian abscess) Status: Acute Code(s): N70.93 - SALPINGITIS AND OOPHORITIS, UNSPECIFIED SNOMED Code(s): 56177499 Plan: 1patient was in the hospital with sepsis in this patient who did have fever tachycardia elevated white count bradycardia versus also likely tubo-ovarian abscess failing outpatient oral Keflex and doxycycline therapy, patient has been eval by TICKET COLLECTOR OR USHER not recommending any surgical invention at this point 2- CT of abdominal pelvis was reviewed with radiologist mention no severe to aspirate 3-patient has shown clinical improvement white count is trending down we will consider 10-day course of oral Ceftin and Flagyl on discharge however advised if any worsening abdominal pain no fever she will need to come back to the hospital discussed with HOME OFFICE CLAIM SPECIALIST for admitting team Dictation was produced using Fastnote dictation software. please excuse any grammatical, word or spelling errors. Time with Patient: Less than 30
== END 2024-08-25 15:46 | disposition home or self-care (01) | DRG 872 ==
LOC: EC 10:41 → 5NMEDONC 15:56
PROVIDERS: ADMIT Internal Medicine; ATTEND Internal Medicine
DX: A41.9 Sepsis, unspecified organism (principal); N70.03 Acute salpingitis and oophoritis; M35.00 Sjogren syndrome, unspecified; E66.9 Obesity, unspecified; Z87.891 Personal history of nicotine dependence; N83.202 Unspecified ovarian cyst, left side; N83.201 Unspecified ovarian cyst, right side; F41.9 Anxiety disorder, unspecified; N30.90 Cystitis, unspecified without hematuria; G51.0 Bell's palsy; N89.8 Other specified noninflammatory disorders of vagina; Z68.38 Body mass index [BMI] 38.0-38.9, adult; Z79.899 Other long term (current) drug therapy
CPT/HCPCS: 36415; 71046; 74177; 76830; 76856; 80048; 80053; 81001; 81025; 82150; 83605; 83690; 85025; 87040; 87491; 87591; 87636; 96361; 96365; 96366; 96375; 99285

== ENCOUNTER → 2024-08-27 | Outpatient (CLI) | payer BC ==
[2024-08-27 15:09] LABS: Basophils # (A) 0.05 X 10*3/uL (0.00-0.10); Basophils % (A) 0.4 %; Eosinophils # (A) 0.18 X 10*3/uL (0.04-0.35); Eosinophils % (A) 1.6 %; HCT 36.9 % (37.2-46.3); Lymphocytes # (A) 1.21 X 10*3/uL (0.90-5.00); Lymphocytes % (A) 10.7 %; MCH 30.6 pg (27.0-32.0); MCHC 32.5 g/dL (32.0-37.0); MCV 94.1 FL (80.0-97.0); Mean Platelet Volume 8.6 FL (9.5-12.2); Monocytes # (A) 0.57 X 10*3/uL (0.20-1.00); NRBC Per 100 WBC 0 X 10*3/uL (0.00-0.01); Neutrophils # (A) 9.18 X 10*3/uL (1.80-7.70); Neutrophils % (A) 81.1 %; Platelet Count 518 X 10*3/uL (140-440); RBC 3.92 X 10*6/uL (4.10-5.20); RDW 13.4 % (11.5-14.5); WBC 11.33 X 10*3/uL (4.50-10.00)
== END | disposition home or self-care (01) ==
LOC: LABWHC1 09:25
PROVIDERS: ATTEND Registered Nurse
DX: D72.829 Elevated white blood cell count, unspecified (principal)
CPT/HCPCS: 36415; 85025

== ENCOUNTER → 2024-09-27 | Outpatient (CLI) | payer BC | END | disposition home or self-care (01) | LOC: LABWHC1 12:08 | PROVIDERS: ATTEND Obstetrics & Gynecology Obstetrics | DX: N83.202 Unspecified ovarian cyst, left side (principal) | CPT/HCPCS: 36415 ==

== ENCOUNTER → 2024-11-26 | Outpatient (CLI) | payer BC ==
[2024-11-26 15:21] LABS: Basophils # (A) 0.04 X 10*3/uL (0.00-0.10); Basophils % (A) 0.4 %; Eosinophils # (A) 0.11 X 10*3/uL (0.04-0.35); Eosinophils % (A) 1.2 %; HCT 39.6 % (37.2-46.3); HGB 12.6 g/dL (12.0-15.0); Immature Grans, Automated 0.40 %; Lymphocytes # (A) 1.86 X 10*3/uL (0.90-5.00); Lymphocytes % (A) 20.4 %; MCH 30.3 pg (27.0-32.0); MCHC 31.8 g/dL (32.0-37.0); MCV 95.2 FL (80.0-97.0); Monocytes # (A) 0.62 X 10*3/uL (0.20-1.00); Monocytes % (A) 6.8 %; NRBC Per 100 WBC 0 X 10*3/uL (0.00-0.01); Neutrophils # (A) 6.45 X 10*3/uL (1.80-7.70); Neutrophils % (A) 70.8 %; Platelet Count 403 X 10*3/uL (140-440); RBC 4.16 X 10*6/uL (4.10-5.20); RDW 13.5 % (11.5-14.5); WBC 9.12 X 10*3/uL (4.50-10.00)
[2024-11-26 15:32] LABS: Anion Gap 11.00 mmol/L (4.00-12.00); Blood Urea Nitrogen 9.5 mg/dL (9.0-27.0); Carbon Dioxide 23.0 mmol/L (21.6-31.8); Chloride 103 mmol/L (96-109); Glucose 98 mg/dL (70-110); Potassium 4.6 mmol/L (3.5-5.5); Sodium 137 mmol/L (135-145)
== END | disposition home or self-care (01) ==
LOC: LABPAT 11:27
PROVIDERS: ATTEND Obstetrics & Gynecology Obstetrics
DX: Z01.812 Encounter for preprocedural laboratory examination (principal); N92.0 Excessive and frequent menstruation with regular cycle; N83.202 Unspecified ovarian cyst, left side
CPT/HCPCS: 36415; 80051; 82565; 82947; 84520; 85025; 86850; 86900; 86901; 87086

== ENCOUNTER 2024-12-06 05:36 | Day surgery (SDC) | payer BC ==
[2024-12-06] MEDS ORDERED: HYDROmorphone 0.5 MG/0.5 ML SYRINGE IVP PRN ×2 (06:09→07:49)
[2024-12-06] MEDS: IV FLUID CONTINUATION 1,000 ML IV ONE (06:32)
[2024-12-06] MEDS: LACTATED RINGERS 1,000 ML IV SCH (06:37)
[2024-12-06] MEDS: DEXAMETHASONE SOD PHOSPHATE 4 MG/ML 1 ML VIAL IV ONE (06:37)
[2024-12-06] MEDS: ONDANSETRON 4 MG/2 ML VIAL IVP ONE (06:37)
[2024-12-06] MEDS: fentaNYL (PF) 50 MCG/ML 2 ML AMP IVP PRN (07:05)
[2024-12-06] MEDS: MIDAZOLAM 2 MG/2 ML VIAL IV ONE (07:15)
[2024-12-06] MEDS ORDERED: NEOSTIGMINE 1 MG/ML 10 ML VIAL ONE (07:26)
[2024-12-06] MEDS ORDERED: ROCURONIUM 10 MG/ML (5 ML VIAL) IV ONE (07:26)
[2024-12-06] MEDS ORDERED: LIDOCAINE 1% INJ 10MG/ML (20 ML MDV) ONE (07:26)
[2024-12-06] MEDS ORDERED: SUCCINYLCHOLINE CHLORIDE 200 MG/10 ML VIAL IV ONE (07:26)
[2024-12-06] MEDS ORDERED: PROPOFOL 10 MG/ML 20 ML VIAL IV ONE (07:26)
[2024-12-06] MEDS ORDERED: GLYCOPYRROLATE 0.2 MG/ML 2 ML VIAL ONE (07:26)
[2024-12-06] MEDS ORDERED: fentaNYL (PF) 50 MCG/ML 2 ML AMP ONE (07:26)
[2024-12-06] MEDS ORDERED: fentaNYL (PF) 50 MCG/ML 2 ML AMP IVP PRN (07:27)
--- NOTE | 2024-12-06 07:40 | P.HPOB ---
History of Present Illness H&P Date: 12/06/24 Chief Complaint: Heavy menstrual bleeding, Left ovarian cyst 44 yo presents for scheduled robotic assist hysterectomy with left salpingoophotrectomy diagnostic cystoscopy, possible open. Patient was diagnosed at [facility] with left tubo-ovarian abscess. She was subsequently admitted for IV antibiotics in March. Patient did present to the office for annual exam and requested definitive therapy. This is the second time patient has had a tubo-ovarian abscess. Patient states menstrual cycles are heavy but monthly. Lasting 7 days with multiple days of spotting around her cycle. Patient states she is done with childbearing and desires definitive treatment. Patient does have a history of Sjogren's syndrome and has not seen a manufacturer's representative in quite some time. Patient continues to complain of extreme fatigue. Ultrasound done in March revealing enlarged uterus of 10.9, left ovarian complex cyst was appreciated, negative ova 1 is appreciated. Review of Systems Constitutional: Denies chills, Denies fatigue, Denies fever Ears, nose, mouth and throat: Denies headache Cardiovascular: Reports leg edema Respiratory: Denies dyspnea Gastrointestinal: Denies nausea, Denies vomiting Genitourinary: Reports as per HPI, Reports menorrhagia, Denies Menstruation: Reports period heavy Past Medical History Past Medical History: Hyperlipidemia Additional Past Medical History / Comment(s): Sjogren's. hx tachycardia. hx Darling's Palsy approx 3 yrs ago. hx migraines. Hx Sepsis due to burst Ovarian Cyst August 2024. History of Any Multi-Drug Resistant Organisms: None Reported Past Surgical History: Cholecystectomy Additional Past Surgical History / Comment(s): Surgery for goldman on right leg. Past Anesthesia/Blood Transfusion Reactions: No Reported Reaction Smoking Status: Former smoker - Past Family History Mother Family Medical History: Cancer Father Family Medical History: Coronary Artery Disease (CAD) Medications and Allergies Home Medications Medication Instructions Recorded Confirmed Type ALPRAZolam [Xanax] 1 mg PO TID PRN 01/26/21 12/06/24 History Atorvastatin [Lipitor] 10 mg PO DAILY 08/22/24 12/06/24 History Metoprolol Tartrate [Lopressor] 50 mg PO BID-W/MEALS 08/22/24 12/06/24 History SUMAtriptan succinate [Imitrex] 50 mg PO DAILY PRN #5 tab 08/25/24 12/06/24 Rx Ibuprofen [Motrin] 800 mg PO Q6HR PRN 11/29/24 12/06/24 History Allergies Allergy/AdvReac Type Severity Reaction Status Date / Time No Known Allergies Allergy Verified 12/06/24 06:51 Exam Osteopathic Statement: *. No significant issues noted on an osteopathic structural exam other than those noted in the History and Physical/Consult. Vital Signs Temp Pulse Resp BP Pulse Ox 12/06/24 07:19 112 H 16 143/102 98 12/06/24 07:09 112 H 16 129/96 98 12/06/24 06:20 97.3 F L 112 H 16 142/93 98 Intake and Output 12/05/24 12/06/24 12/06/24 22:59 06:59 14:59 Intake Total 500 Balance 500 Intake: IV 500 Other: Weight 117.2 kg Targeted physical exam is performed this date General Is well-nourished well- developed non patient in no acute distress, breathing appears nonlabored, abdomen is soft and nontender, genitourinary exam external genitalia is normal for age no lesions are appreciated. Vaginal mucosa is noted to be pink and well-rugated cervix is without lesion. Uterus small is noted to be slightly enlarged, no appreciable adnexal masses are noted most likely secondary to body habitus. Assessment and Plan (1) Heavy menstrual bleeding Current Visit: Yes Status: Acute Code(s): N92.0 - EXCESSIVE AND FREQUENT MENSTRUATION WITH REGULAR CYCLE SNOMED Code(s): 993551394 (2) Complex cyst of left ovary Current Visit: Yes Status: Acute Code(s): N83.292 - OTHER OVARIAN CYST, LEFT SIDE SNOMED Code(s): 54191554095046575 (3) Smoker Current Visit: No Status: Acute Code(s): F17.200 - NICOTINE DEPENDENCE, UNSPECIFIED, UNCOMPLICATED SNOMED Code(s): 04194279 Plan: 44-year-old female that presents for robotic assisted hysterectomy, bilateral salpingectomy, left oophorectomy, diagnostic cystoscopy. Risks of surgery were reviewed with patient in detail including without limited to infection, bleeding, damage to bladder, bowel, ureteric injury patient states understanding and informed consent is obtained. Anesthesia into see patient will proceed with scheduled procedure.
[2024-12-06] MEDS ORDERED: NALOXONE 0.4 MG/ML 1 ML VIAL IV PRN (07:49)
--- NOTE | 2024-12-06 07:49 | P.ANPRN ---
Procedure Note - Anesthesia - Epidural/Spinal Spinal Time Out Performed: Yes Date of Procedure: 12/06/24 Procedure Start Time: 07:04 Procedure Stop Time: 07:14 Location of Patient: PreOp Indication: Acute Post-Operative Pain, Requested by Surgeon Sedation Type: Sedate with meaningful contact maintained Preparation: Sterile Prep Position: Sitting Needle Guage: 25 Injectate: Duramorph 300 mcg and fentanyl 25 mcg injected intrathecally Blood Aspirated: No Pain Paresthesia on Injection Noted: No Events: Uneventful and Well Tolerated
[2024-12-06] MEDS: BUPIVACAINE (PF) 0.25% 30 ML VIAL SQ ONE ×2 (07:52→09:28)
[2024-12-06] MEDS: LACTATED RINGERS 1,000 ML IV ONE (08:15)
[2024-12-06] MEDS ORDERED: SIMETHICONE 80 MG CHEWABLE PO PRN (09:40)
--- NOTE | 2024-12-06 10:04 | P.OP ---
Date of Procedure: 12/06/24 Preoperative Diagnosis: Heavy menstrual bleeding, enlarged uterus, left ovarian complex cyst low risk ova 1 Postoperative Diagnosis: Same plus multicystic right ovary Procedure(s) Performed: Robotic assisted vaginal hysterectomy, bilateral salpingo-oophorectomy, diagnostic cystoscopy Anesthesia: KAYLIEA Surgeon: Jaz Newberry Aircraft Magneto Mechanic #1: Eddie Bell Estimated Blood Loss (ml): 50 IV fluids (ml): 1,100 Urine output (ml): 150 (Clear yellow) Pathology: other (Uterus cervix bilateral fallopian tubes bilateral ovaries) Condition: stable Disposition: PACU Indications for Procedure: Heavy menstrual bleeding with left complex ovarian cyst. Patient has a prior history of a left tubo-ovarian abscess, over 1 was done given complex nature of ovarian cyst this was low risk. Operative Findings: Enlarged globular uterus bilateral ovaries with multiple simple appearing follicular cysts. Some multiloculated. Left ovary with filmy adhesions to the pelvic sidewall and bowel taken down sharply. Description of Procedure: Patient was taken back to the operating room where general anesthesia was obtained without difficulty by the anesthesia department. She was prepped and draped in the normal sterile fashion the dorsolithotomy position. A weighted speculum placed in the posterior vaginal vault the anterior lip of the cervix was visualized and grasped with a single-tooth tenaculum. The endocervical Canal was then serially dilated and a Viewpoint Digital uterine manipulator was advanced into the uterus as a means to miniplate the uterus throughout the procedure. Prior to this a Alcaraz catheter was placed under sterile technique. At this time all histamines were removed from the patient's vaginal vault intentions and turned to the patient's abdomen approximately 2 fingerbreadths above the umbilicus a small skin incision is made through this incision the trocar and laparoscope was placed and under direct visualization the abdominal cavity is entered. CO2 insufflation was allowed to occur. At this time approximately 3 L of gas were used to obtain pneumoperitoneum. The above-noted findings are visualized. The additional port sites were then placed 10 cm lateral and 3 cm inferior the midline port these are 8 mm ports and placed under direct visualization. In the left upper quadrant a 12 lm trocar and sleeve is placed under direct visualization. The left ovary was then dissected sharply off of the pelvic sidewall. Hemostasis was appreciated throughout. The and below pelvic ligament was visualized coagulated distally and proximally and divided. This continued through the broad ligament toward the round ligament. The round ligament was then coagulated distally and proximally and divided. The ovary was then transected from the uterus and placed in an Endo Catch bag. The bladder flap from the left was then created using sharp and blunt dissection. The ascending branch of the uterine artery was visualized multiple tributaries were appreciated coagulated and transected. Attention was then turned to the patient's right infundibulopelvic ligament which was visualized coagulated and transected. Some filmy adhesions to the posterior ovary were noted and taken down sharply. The infundibulopelvic ligament was coagulated distally proximally divided and continued toward the round ligament. The bladder flap from the rig ht was then created using sharp and blunt dissection. The ovary was then transected and placed in an Endo Catch bag, the ascending branch of the uterine artery was visualized coagulated and transected. Multiple accessory vessels were appreciated coagulated and transected. At this time the only remaining attachment was the vaginal attachment therefore colpotomy incision was made in a circumferential fashion. The uterus was then delivered through the vaginal opening. The pelvis was then copiously irrigated and the vaginal cuff was then closed with multiple [id number] sutures of 0 Vicryl. Approximately 5 sutures were used to obtain closure. The pelvis was irrigated once again hemostasis was appreciated and Surgicel powder was placed along the left pelvic sidewall and vaginal cuff. No active bleeding was appreciated. At this time all instruments were removed from the patient's abdomen. Attention then turned to the patient's Alcaraz catheter which was removed without difficulty and noted to be draining clear yellow urine. A cystoscope was performed, the cystoscope was placed through the urethra and toward the bladder bladder bubble was appreciated both ureteral orifices were noted be spilling clear yellow urine. A complete survey of the bladder revealed an intact cavity. The cystoscope was removed, Alcaraz catheter was replaced. Attention then turned to the patient's abdomen where the skin incisions were closed with 4-0 Vicryl in a subcuticular fashion. Steri-Strips and sterile dressings were applied. All counts were to be correct x 2. Patient tolerated procedure well and was taken the recovery room awake in stable condition.
[2024-12-06] MEDS: diphenhydrAMINE 50 MG/ML 1 ML VIAL IVP PRN (10:59)
[2024-12-06] MEDS: KETOROLAC 15 MG/ML 1 ML VIAL IVP PRN (11:58)
[2024-12-06] MEDS: IBUPROFEN 800 MG TAB PO SCH (17:05)
[2024-12-06] MEDS: IBUPROFEN IV 800 MG in SODIUM CHLORIDE 0.9% 250 ML IV ONE (17:05)
[2024-12-06] MEDS: ACETAMINOPHEN TAB 500 MG TAB PO SCH (17:05)
[2024-12-06] MEDS: SENNOSIDES-DOCUSATE SODIUM 1 EACH TAB PO SCH (20:46)
[2024-12-06] MEDS: ATORVASTATIN 10 MG TAB PO SCH (20:48)
[2024-12-06] MEDS: METOPROLOL TARTRATE 50 MG TAB PO SCH (20:48)
[2024-12-06] MEDS: ONDANSETRON 4 MG/2 ML VIAL IVP PRN (20:51)
[2024-12-06 22:34] VITALS: TEMP 98.3
[2024-12-07 06:34] LABS: Basophils # (A) 0.03 10*3/uL (0.00-0.10); Basophils % (A) 0.2 %; Eosinophils # (A) 0.01 10*3/uL (0.04-0.35); Eosinophils % (A) 0.1 %; HCT 33.5 % (37.2-46.3); HGB 10.9 g/dL (12.0-15.0); Lymphocytes # (A) 1.75 10*3/uL (0.90-5.00); Lymphocytes % (A) 13.4 %; MCH 30.5 pg (27.0-32.0); MCHC 32.5 g/dL (32.0-37.0); MCV 93.8 fL (80.0-97.0); Monocytes # (A) 1.10 10*3/uL (0.20-1.00); Monocytes % (A) 8.4 %; Neutrophils # (A) 10.08 10*3/uL (1.80-7.70); Neutrophils % (A) 77.4 %; Platelet Count 365 10*3/uL (140-440); RBC 3.57 10*6/uL (4.10-5.20); RDW 13.9 % (11.5-14.5); WBC 13.04 10*3/uL (4.50-10.00)
--- NOTE | 2024-12-07 08:41 | P.DS ---
Providers Date of admission: 12/06/2024 Expected date of discharge: 12/07/24 Attending physician: Jaz Newberry Primary care physician: Kevin Denis MD - Discharge Diagnosis(es) (1) Heavy menstrual bleeding Current Visit: Yes Status: Acute (2) Complex cyst of left ovary Current Visit: Yes Status: Acute (3) Smoker Current Visit: No Status: Acute (4) S/P hysterectomy with oophorectomy Current Visit: Yes Status: Acute Hospital Course: This is a 44 yo that presented to the [facility] for scheduled robotic assisted vaginal hysterectomy, bilateral salpingectomy, left salpingo- oophorectomy, diagnostic cystoscopy. Patient had been struggling with left complex cyst. Patient was seen in the office with continued pain and desired definitive treatment. Overall 1 was performed and noted to be low risk therefore surgery was scheduled. For full details on this patient please see the dictated history and physical. Patient was taken back to the operating room where robotic assisted vaginal hysterectomy with bilateral salpingo-oophorectomy, diagnostic cystoscopy was performed. Bilateral ovarian cyst were appreciated, multiloculated in nature. For full details on the surgery please see the dictated operative report Postoperatively patient is doing well. She is ambulating and voiding without difficulty. She states pain is well-controlled. She denies spotting. She is concerned about bowel movements, stool softeners are recommended and encouraged Follow-up care is discussed with patient, no tub baths intercourse or swimming until released by myself. Patient Condition at Discharge: Good Plan - Discharge Summary Discharge Rx Participant: No New Discharge Prescriptions: No Action SUMAtriptan succinate [Imitrex] 50 mg PO DAILY PRN #5 tab PRN Reason: Migraine Headache ALPRAZolam [Xanax] 1 mg PO TID PRN PRN Reason: Anxiety Metoprolol Tartrate [Lopressor] 50 mg PO BID-W/MEALS Atorvastatin [Lipitor] 10 mg PO DAILY Ibuprofen [Motrin] 800 mg PO Q6HR PRN PRN Reason: Mild Pain Or Fever > 100.5 Discharge Medication List ALPRAZolam [Xanax] 1 mg PO TID PRN 01/26/21 [History] Atorvastatin [Lipitor] 10 mg PO DAILY 08/22/24 [History] Metoprolol Tartrate [Lopressor] 50 mg PO BID-W/MEALS 08/22/24 [History] SUMAtriptan succinate [Imitrex] 50 mg PO DAILY PRN #5 tab 08/25/24 [Rx] Ibuprofen [Motrin] 800 mg PO Q6HR PRN 11/29/24 [History] Follow up Appointment(s)/Referral(s): Jaz Newberry DO [Doctor of Osteopathic Medicine] - 2 Weeks Patient Instructions/Handouts: Laparoscopic Hysterectomy (DC), Laparoscopic Hysterectomy (GEN) Activity/Diet/Wound Care/Special Instructions: [id number] ibuprofen 600 mg or 3 tablets every 6 hours as needed for pain. No tub baths intercourse or swimming until cleared by myself. Postoperative bleeding as discussed and questions are answered. [id number] stool softener senna S to at bedtime reviewed.
--- NOTE | 2024-12-07 09:38 | P.PN ---
Progress Note - Text Progress Note Date: 12/07/24 Postoperative day 1 status post robotic vaginal hysterectomy under general endotracheal anesthesia, and intrathecal morphine given for postoperative analgesia, patient doing well, there is no anesthesia related complications, Patient had no headache, vital signs stable , Assessment and plan= postop day 1 status post robotic hysterectomy, doing well there is no anesthesia related complication.
[2024-12-07 11:50] VITALS: BP 112/71; PULSE 71; RESP 16
== END 2024-12-07 12:53 | disposition home or self-care (01) ==
LOC: OR 05:36 → 4FBP 09:45 → OR 12-07 12:53
PROVIDERS: ATTEND Obstetrics & Gynecology Obstetrics
DX: N92.0 Excessive and frequent menstruation with regular cycle (principal); N83.202 Unspecified ovarian cyst, left side; N83.201 Unspecified ovarian cyst, right side; N88.8 Other specified noninflammatory disorders of cervix uteri; Z87.891 Personal history of nicotine dependence; E78.5 Hyperlipidemia, unspecified; M35.09 Sjogren syndrome with other organ involvement
CPT/HCPCS: 81025; 88305; 85025; 88307; 58262; J2250; J0330; J1200; J1100; J2710; J0690; J2405; J2003; J3010; J1885; J2704; J0665; J1596